=== PATIENT | male | born 1970 | race Two or more races ===

== ENCOUNTER 2018-05-19 09:49 | Emergency (ER) | payer MEDICAID, OTHER ==
[~2018-05-19] VITALS: Ht 172.7 cm; Wt 77.1 kg
[2018-05-19 09:49] VITALS: BP 124/85
[~2018-05-19 09:49] MED LIST: AUGMENTIN 875-1 EAC1 ORAL; ERYTHROMYCIN3.5 GM RIGHT EYE; IBUPROFEN600 MG ORAL; NKM; NORCO 5-325 TA1 EACH ORAL; VALACYCLOVIR1000 MG ORAL
[2018-05-19] MEDS ORDERED: Ketorolac 30mg Inj IV ONE (10:00)
[2018-05-19 10:28] LABS: BASOPHILS % (AUTO) 1.3 % (0.0-2.0); HEMATOCRIT 39.2 % (42.0-52.0); HEMOGLOBIN 13.4 G/DL (14.2-18.0); MEAN CORPUSCULAR VOLUME 94 FL (80-99); MONOCYTES % (AUTO) 4.4 % (1.0-10.0); NEUTROPHILS % (AUTO) 77.3 % (45.0-75.0); PLATELET COUNT 492 K/UL (150-450); RED BLOOD COUNT 4.18 M/UL (4.70-6.10); WHITE BLOOD COUNT 6.7 K/UL (4.8-10.8)
[2018-05-19 10:36] LABS: ANION GAP 14 mmol/L (5-15); BLOOD UREA NITROGEN 10 mg/dL (7-18); CALCIUM 8.3 MG/DL (8.5-10.1); CARBON DIOXIDE 22 MMOL/L (21-32); CHLORIDE 107 MMOL/L (98-107); POTASSIUM 3.7 MMOL/L (3.5-5.1); SODIUM 143 MMOL/L (136-145)
[2018-05-19 10:42] LABS: ALANINE AMINOTRANSFERASE 45 U/L (12-78); ALBUMIN 3.1 G/DL (3.4-5.0); ALBUMIN/GLOBULIN RATIO 0.6 (1.0-2.7); ALKALINE PHOSPHATASE 93 U/L (46-116); ASPARTATE AMINO TRANSFERASE 51 U/L (15-37); BILIRUBIN,TOTAL 0.4 MG/DL (0.2-1.0)
--- NOTE | 2018-05-19 14:27 | Emergency Room Report ---
History of Present Illness General Chief Complaint: Alcohol Intoxication Source: Patient, EMS Present Illness HPI Patient presents with reports of increased alcohol intake He reports that he has been depressed There are family issues and made him drink heavier than usual Patient had increased nausea mild headache Denies any chest pain Denies any vomiting or diarrhea Denies any neck pain denies any fevers Allergies: Coded Allergies: No Known Allergies (Unverified , 01/07/15) Patient History Past Medical History: see triage record Pertinent Family History: none Reviewed Nursing Documentation: PMH: Agreed; PSxH: Agreed Nursing Documentation-PMH Hx Hypertension: Yes Hx Diabetes: No Review of Systems All Other Systems: negative except mentioned in HPI Physical Exam Vital Signs Date Time Temp Pulse Resp B/P (MAP) Pulse Ox O2 Delivery O2 Flow Rate FiO2 05/19/18 09:42 97.9 100 18 118/83 98 05/19/18 09:49 Room Air Sp02 EP Interpretation: reviewed, normal General Appearance: no apparent distress Head: normocephalic, atraumatic Eyes: bilateral eye PERRL, bilateral eye EOMI ENT: hearing grossly normal, normal pharynx, TMs + canals normal, uvula midline Neck: full range of motion, supple, no meningismus, no bony tend Respiratory: lungs clear, normal breath sounds, no rhonchi, no respiratory distress, no retraction, no accessory muscle use Cardiovascular #1: normal peripheral pulses, regular rate, rhythm, no edema, no gallop, no JVD, no murmur Gastrointestinal: normal bowel sounds, non tender, soft, no mass, no organomegaly, non-distended, no guarding, no hernia, no pulsatile mass, no rebound Genitourinary: no CVA tenderness Musculoskeletal: normal inspection Neurologic: oriented x3, responsive, cardiac sonographer III-XII nml as tested, motor strength/ tone normal, sensory intact Psychiatric: other - Tearful Skin: normal color, no rash, warm/dry, palpation normal Lymphatic: normal inspection, no adenopathy Medical Decision Making Diagnostic Impression: Primary Impression: Acute alcoholic intoxication Additional Impression: depression ER Course Given the patient's history and presentation extensive blood work was initiated Patient's alcohol level is significantly elevated Given his complaints of depression and presentation psychiatric services were also requested Patient was seen and evaluated please refer to Dr. Stokes's note for full consult patient reports She however did have suggestions for the patient and did write a prescription Otherwise did not feel patient met any further requirement for acute intervention Family is being contacted and patient requires disposition with safety to family Secondary to alcohol intake otherwise medically cleared Labs Test 05/19/18 10:00 White Blood Count 6.7 K/UL (4.8-10.8) Red Blood Count 4.18 M/UL (4.70-6.10) Hemoglobin 13.4 G/DL (14.2-18.0) Hematocrit 39.2 % (42.0-52.0) Mean Corpuscular Volume 94 FL (80-99) Mean Corpuscular Hemoglobin 32.2 PG (27.0-31.0) Mean Corpuscular Hemoglobin Concent 34.3 G/DL (32.0-36.0) Red Cell Distribution Width 14.0 % (11.6-14.8) Platelet Count 492 K/UL (150-450) Mean Platelet Volume 5.8 FL (6.5-10.1) Neutrophils (%) (Auto) 77.3 % (45.0-75.0) Lymphocytes (%) (Auto) 16.0 % (20.0-45.0) Monocytes (%) (Auto) 4.4 % (1.0-10.0) Eosinophils (%) (Auto) 1.0 % (0.0-3.0) Basophils (%) (Auto) 1.3 % (0.0-2.0) Sodium Level 143 MMOL/L (136-145) Potassium Level 3.7 MMOL/L (3.5-5.1) Chloride Level 107 MMOL/L (98-107) Carbon Dioxide Level 22 MMOL/L (21-32) Anion Gap 14 mmol/L (5-15) Blood Urea Nitrogen 10 mg/dL (7-18) Creatinine 1.0 MG/DL (0.55-1.30) Estimat Glomerular Filtration Rate > 60 mL/min (>60) Glucose Level 103 MG/DL (74-106) Calcium Level 8.3 MG/DL (8.5-10.1) Total Bilirubin 0.4 MG/DL (0.2-1.0) Aspartate Amino Transf (AST/SGOT) 51 U/L (15-37) Alanine Aminotransferase (ALT/SGPT) 45 U/L (12-78) Alkaline Phosphatase 93 U/L (46-116) Total Protein 8.0 G/DL (6.4-8.2) Albumin 3.1 G/DL (3.4-5.0) Globulin 4.9 g/dL Albumin/Globulin Ratio 0.6 (1.0-2.7) Salicylates Level 1.3 ug/mL (2.8-20) Urine Opiates Screen Negative (NEGATIVE) Acetaminophen Level < 2 MCG/ML (10-30) Urine Barbiturates Screen Negative (NEGATIVE) Phencyclidine (PCP) Screen Negative (NEGATIVE) Urine Amphetamines Screen Negative (NEGATIVE) Urine Benzodiazepines Screen Negative (NEGATIVE) Urine Cocaine Screen Negative (NEGATIVE) Urine Marijuana (THC) Screen Negative (NEGATIVE) Serum Alcohol 370 mg/dL Last Vital Signs Date Time Temp Pulse Resp B/P (MAP) Pulse Ox O2 Delivery O2 Flow Rate FiO2 05/19/18 10:42 97.9 05/19/18 09:49 109 18 124/85 98 05/19/18 09:49 Room Air Status: improved Disposition: HOME, SELF-CARE Condition: Improved Referrals: [facility],REFERRING (PCP) Patient Instructions: Alcohol Abuse and Nutrition Additional Instructions: You were seen by psychiatric specialty today. A prescription was written after this visit please follow closely with your primary physician as well Matt Turner DO May 19, 2018 14:27
[2018-05-19 16:14] VITALS: BP 118/78
== END 2018-05-19 16:10 | disposition home or self-care (01) ==
LOC: EDBD 09:49 → EMR 10:10
DX: F10.129 Alcohol abuse with intoxication, unspecified (principal); I10 Essential (primary) hypertension; F32.9 Major depressive disorder, single episode, unspecified
CPT/HCPCS: 36415; 80053; 80307; 80329; 85025; 96361; 96374; 96375; 99284; J1885; J2405

== ENCOUNTER 2019-01-29 20:47 | Inpatient (IN) | payer OTHER ==
[~2019-01-29] VITALS: Ht 167.6 cm; Wt 66.2 kg
[~2019-01-29 20:47] MED LIST changes: +AMOXICILLIN500 MG ORAL; +RANITIDINE HCL150 MG ORAL; +ZOFRAN ODT4 MG ORAL
[2019-01-29] MEDS ORDERED: LISINOPRIL5 MG ORAL (20:58)
[2019-01-29] MEDS ORDERED: CYCLOBENZAPRINE10 MG ORAL (20:58)
[2019-01-29] MEDS ORDERED: MAG-OXIDE400 M1 PO (20:58)
[2019-01-29] MEDS ORDERED: FUROSEMIDE40 MG ORAL (20:58)
[2019-01-29] MEDS ORDERED: COREG3.125 MG ORAL (20:58)
--- NOTE | 2019-01-29 21:15 | NUR ---
ED Nurse Note: Recieved pt on jaspreet from home, awake, alert and oriented x 4, pt here with severe sob, pt has labored breathing and accessory muscle use, pt is only omani speaking, using translation faith pt has on his phone for assistance, pt also c/o abdominal paina t 8, no emesis and mild nausea, denies cp, pt immediately gowned and placed on cardiac monitoring, iv line and labs done also, will resume care as ordered and continue to closely monitor, respiratory therapist notified immediately.
--- NOTE | 2019-01-29 21:16 | Emergency Room Report ---
History of Present Illness General Chief Complaint: Dyspnea/Respdistress Source: Patient Present Illness HPI Patient presents with complaints of shortness of breath reports that Onset was several hours prior to arrival He feels more short of breath with any exertion denies any vomiting or diarrhea denies any fevers or chills on review of medical records patient has been here previously with Findings of possible CHF Patient himself is somewhat of a poor historian Did not provide any previous history of his presentations Denies any vomiting or diarrhea denies any fevers or chills denies any recent travel Allergies: Coded Allergies: NO KNOWN ALLERGIES (Unverified Allergy, Unknown, 07/21/18) Patient History Past Medical History: see triage record Reviewed Nursing Documentation: PMH: Agreed; PSxH: Agreed Nursing Documentation-PMH Past Medical History: No History, Except For Hx Hypertension: Yes Hx Diabetes: No Review of Systems All Other Systems: negative except mentioned in HPI Physical Exam Vital Signs Date Time Temp Pulse Resp B/P (MAP) Pulse Ox O2 Delivery O2 Flow Rate FiO2 01/29/19 20:54 97.3 98 47 120/98 (105) 92 Room Air Sp02 EP Interpretation: reviewed, normal General Appearance: mild distress - Tachypneic and appears short of breath Head: normocephalic, atraumatic Eyes: bilateral eye PERRL, bilateral eye EOMI ENT: hearing grossly normal, normal pharynx, TMs + canals normal, uvula midline Neck: full range of motion, supple, no meningismus, no bony tend Respiratory: no rhonchi, no respiratory distress, no retraction, no accessory muscle use, crackles - Bilaterally Cardiovascular #1: normal peripheral pulses, regular rate, rhythm, no edema, no gallop, no JVD, no murmur Gastrointestinal: normal bowel sounds, non tender, soft, no mass, no organomegaly, non-distended, no guarding, no hernia, no pulsatile mass, no rebound Genitourinary: no CVA tenderness Musculoskeletal: normal inspection Neurologic: oriented x3, responsive, engine repairer production III-XII nml as tested, motor strength/ tone normal, sensory intact Psychiatric: mood/affect normal Skin: no rash Lymphatic: normal inspection, no adenopathy Procedures Critical Care Time Critical Care Time 50 minutes for multiple re-evaluations initial critical presentation with respiratory distress not including any procedural time Medical Decision Making Diagnostic Impression: Primary Impression: Dyspnea Additional Impression: CHF (congestive heart failure) ER Course Patient is a fairly complex patient with multiple differential to consideration including but not limited to cardiac cardiopulmonary and vascular emergencies Patient's x-ray shows right-sided increased markings and also cardiomegaly with congestion blood work reveals findings with increased BNP Patient has further diuretics provided was initially placed on BiPAP with significant improvement and later on Was asking to remove this And admitted for further care Labs Test 01/29/19 21:15 01/29/19 22:00 White Blood Count 7.2 K/UL (4.8-10.8) Red Blood Count 3.96 M/UL (4.70-6.10) Hemoglobin 13.0 G/DL (14.2-18.0) Hematocrit 37.3 % (42.0-52.0) Mean Corpuscular Volume 94 FL (80-99) Mean Corpuscular Hemoglobin 32.9 PG (27.0-31.0) Mean Corpuscular Hemoglobin Concent 34.9 G/DL (32.0-36.0) Red Cell Distribution Width 14.2 % (11.6-14.8) Platelet Count 201 K/UL (150-450) Mean Platelet Volume 6.5 FL (6.5-10.1) Neutrophils (%) (Auto) 79.9 % (45.0-75.0) Lymphocytes (%) (Auto) 14.0 % (20.0-45.0) Monocytes (%) (Auto) 4.3 % (1.0-10.0) Eosinophils (%) (Auto) 1.0 % (0.0-3.0) Basophils (%) (Auto) 0.9 % (0.0-2.0) Prothrombin Time 11.5 SEC (9.30-11.50) Prothromb Time International Ratio 1.1 (0.9-1.1) Activated Partial Thromboplast Time 29 SEC (23-33) Sodium Level 139 MMOL/L (136-145) Potassium Level 4.1 MMOL/L (3.5-5.1) Chloride Level 105 MMOL/L (98-107) Carbon Dioxide Level 24 MMOL/L (21-32) Anion Gap 10 mmol/L (5-15) Blood Urea Nitrogen 17 mg/dL (7-18) Creatinine 1.0 MG/DL (0.55-1.30) Estimat Glomerular Filtration Rate > 60 mL/min (>60) Glucose Level 122 MG/DL (74-106) Calcium Level 8.2 MG/DL (8.5-10.1) Total Bilirubin 1.2 MG/DL (0.2-1.0) Direct Bilirubin 0.2 MG/DL (0.0-0.3) Aspartate Amino Transf (AST/SGOT) 89 U/L (15-37) Alanine Aminotransferase (ALT/SGPT) 70 U/L (12-78) Alkaline Phosphatase 99 U/L (46-116) Total Creatine Kinase 381 U/L (26-308) Creatine Kinase MB 5.4 NG/ML (0.0-3.6) Creatine Kinase MB Relative Index 1.4 Troponin I 0.012 ng/mL (0.000-0.056) Pro-B-Type Natriuretic Peptide 7165 pg/mL (0-125) Total Protein 7.3 G/DL (6.4-8.2) Albumin 3.3 G/DL (3.4-5.0) Globulin 4.0 g/dL Albumin/Globulin Ratio 0.8 (1.0-2.7) Lipase 205 U/L (73-393) Urine Color Pale yellow Urine Appearance Clear Urine pH 5 (4.5-8.0) Urine Specific [place] 1.010 (1.005-1.035) Urine Protein Negative (NEGATIVE) Urine Glucose (UA) Negative (NEGATIVE) Urine Ketones Negative (NEGATIVE) Urine Blood Negative (NEGATIVE) Urine Nitrite Negative (NEGATIVE) Urine Bilirubin Negative (NEGATIVE) Urine Urobilinogen Normal MG/DL (0.0-1.0) Urine Leukocyte Esterase Negative (NEGATIVE) EKG Diagnostic Results Rate: normal Rhythm: NSR ST Segments: other - Prolonged QRS nonspecific ST changes Rhythm Strip Diag. Results EP Interpretation: yes Rate: 88 Rhythm: NSR, no PVC's, no ectopy Chest X-Ray Diagnostic Results Chest X-Ray Diagnostic Results : Chest X-Ray Ordered: Yes # of Views/Limited/Complete: 1 View Indication: Chest Pain EP Interpretation: Yes Interpretation: no pneumothorax, other - Sided infiltrate, cardiomegaly CHF, Impression: Other - Right-sided infiltrate, CHF Electronically Signed by: Matt Turner DO Last Vital Signs Date Time Temp Pulse Resp B/P (MAP) Pulse Ox O2 Delivery O2 Flow Rate FiO2 01/29/19 20:54 97.3 98 47 120/98 (105) 92 Room Air Status: improved Disposition: HOME, SELF-CARE Condition: Improved Additional Instructions: Patient is provided with the discharge instructions notified to follow up with primary doctor in the next 2-3 days otherwise return to the er with any worsening symptoms. Please note that this report is being documented using [employer] technology. This can lead to erroneous entry secondary to incorrect interpretation by the dictating instrument. Matt Turner DO Jan 29, 2019 21:16
[2019-01-29 22:00] VITALS: BP 125/70
--- NOTE | 2019-01-29 22:00 | NUR ---
ED Nurse Note: Pt placed on BIPAP respiratory support, tolerating well, denies cp, remains with md sim aware, will continue to closely monitor, pt being prepared for admission.
[2019-01-29 22:02] LABS: BASOPHILS % (AUTO) 0.9 % (0.0-2.0); HEMATOCRIT 37.3 % (42.0-52.0); MEAN CORPUSCULAR VOLUME 94 FL (80-99); MONOCYTES % (AUTO) 4.3 % (1.0-10.0); NEUTROPHILS % (AUTO) 79.9 % (45.0-75.0); PLATELET COUNT 201 K/UL (150-450); RED BLOOD COUNT 3.96 M/UL (4.70-6.10); RED CELL DISTRIBUTION WIDTH 14.2 % (11.6-14.8); WHITE BLOOD COUNT 7.2 K/UL (4.8-10.8)
[2019-01-29 22:07] LABS: ANION GAP 10 mmol/L (5-15); BLOOD UREA NITROGEN 17 mg/dL (7-18); CALCIUM 8.2 MG/DL (8.5-10.1); CARBON DIOXIDE 24 MMOL/L (21-32); CHLORIDE 105 MMOL/L (98-107); POTASSIUM 4.1 MMOL/L (3.5-5.1); SODIUM 139 MMOL/L (136-145)
[2019-01-29 22:08] LABS: INR 1.1 (0.9-1.1)
[2019-01-29 22:30] VITALS: BP 120/81
[2019-01-29 22:31] LABS: ALANINE AMINOTRANSFERASE 70 U/L (12-78); ALBUMIN 3.3 G/DL (3.4-5.0); ALBUMIN/GLOBULIN RATIO 0.8 (1.0-2.7); ALKALINE PHOSPHATASE 99 U/L (46-116); ASPARTATE AMINO TRANSFERASE 89 U/L (15-37); BILIRUBIN,TOTAL 1.2 MG/DL (0.2-1.0); CKMB 5.4 NG/ML (0.0-3.6); CREATINE KINASE 381 U/L (26-308)
[2019-01-29 22:32] LABS: BILIRUBIN,DIRECT 0.2 MG/DL (0.0-0.3)
[2019-01-29 22:44] LABS: APPEARANCE,URINE CLEAR; BILIRUBIN, URINE NEGATIVE (NEGATIVE); COLOR,URINE PALE YELLOW; GLUCOSE, URINE (UA) NEGATIVE (NEGATIVE); KETONES,URINE NEGATIVE (NEGATIVE); LEUKOCYTE ESTERASE ,URINE NEGATIVE (NEGATIVE); NITRITE,URINE NEGATIVE (NEGATIVE); PH,URINE 5 (4.5-8.0); PROTEIN,URINE NEGATIVE (NEGATIVE); UROBILINOGEN,URINE NORMAL MG/DL (0.0-1.0)
[2019-01-29 23:15] VITALS: BP 118/87
[2019-01-29] MEDS ORDERED: Nitroglycerin Subl 0.4mg tab SL PRN (23:15)
[2019-01-29] MEDS ORDERED: Albuterol/Ipratropium 3ml neb HHN PRN (23:15)
--- NOTE | 2019-01-29 23:35 | NUR ---
ED Nurse Note: Pt continues to take off BIPAP mask, MD aware, pt given trial of off periiod and tolerated well, pt has been removed from BIPAP per MD, o2 sat=98-99% on RA and pt breathing effort is less, continues to deny chest pain, remains with abdominal pain, md informed again, pt also given water and tolerating well, iv site intact and patent, will continue to clsoely monitor.
[2019-01-30] MEDS ORDERED: Enoxaparin 40mg Inj SUBQ SCH ×2 (00:15→09:00)
[2019-01-30 00:30] VITALS: BP 116/76
--- NOTE | 2019-01-30 01:00 | NUR ---
ED Nurse Note: Pt continues to tolerate room air, b0xrw=45%, pt being prepared for admission,b elonging list completed and med rec, will continue to closely montior and prepare for admission.
--- NOTE | 2019-01-30 01:25 | NUR ---
ED Nurse Note: pt being amditted to floor, report called to GRIS MAY on unit, given all pertinent info and lab values, pt remains awake and alert, iv site intact and patent, completed iv antibiotics, no s/s of adverse reaction noted, pt being taken to floor unit via gurney with GRIS Roth and clayton-pierce piña noted during pt transport to unit.
[2019-01-30 01:30] VITALS: BP 119/83
[2019-01-30 02:00] VITALS: BP 115/84
--- NOTE | 2019-01-30 02:00 | NUR ---
NURSE NOTES: Received pt from ED via gurney. Pt transferred to - without any incident. Received report from GRIS Kruger. Pt is A/O x4. cardiac monitor is in placed, IV site intact, asymptomatic and patent. Belongings list checked and accounted. Bed is in the lowest position and locked. Call light within reach. No signs/symptoms of acute distress noted at this time. Received admission orders from Dr. Connell. Will note and carry out.
[2019-01-30 04:00] VITALS: BP 122/80
[2019-01-30 07:41] LABS: BASOPHILS % (AUTO) 0.8 % (0.0-2.0); HEMATOCRIT 41.8 % (42.0-52.0); LYMPHOCYTES % (AUTO) 10.8 % (20.0-45.0); MEAN CORPUSCULAR VOLUME 97 FL (80-99); MONOCYTES % (AUTO) 7.3 % (1.0-10.0); NEUTROPHILS % (AUTO) 80.1 % (45.0-75.0); PLATELET COUNT 209 K/UL (150-450); RED BLOOD COUNT 4.31 M/UL (4.70-6.10); WHITE BLOOD COUNT 10.8 K/UL (4.8-10.8)
--- NOTE | 2019-01-30 07:45 | NUR ---
NURSE NOTES: Nurse report given by GRIS Perea. Patient's awake, denies pain, no s/s of acute distress or SOB. Pt's on NC 2L, IV is SL, flushed well, patent and asymptomatic. Bed at lowest position, call light within reach, break engaged, belonging bag is next to bed side.
--- NOTE | 2019-01-30 07:52 | NUR ---
HAND-OFF: Report given to GRIS Guzman.
[2019-01-30 07:59] LABS: ANION GAP 10 mmol/L (5-15); BLOOD UREA NITROGEN 16 mg/dL (7-18); CALCIUM 8.5 MG/DL (8.5-10.1); CARBON DIOXIDE 25 MMOL/L (21-32); CHLORIDE 102 MMOL/L (98-107); POTASSIUM 3.6 MMOL/L (3.5-5.1); SODIUM 137 MMOL/L (136-145)
[2019-01-30 08:00] VITALS: BP 108/79
[2019-01-30] MEDS ORDERED: Levofloxacin 500mg tab ORAL SCH (09:00)
[2019-01-30] MEDS ORDERED: Aspirin Baby 81mg ORAL SCH (09:00)
--- NOTE | 2019-01-30 09:27 | NUR ---
*-* NO INSURANCE INFORMATION IN THE BAR UNABLE TO SEND CLINICALS OR REVIEWS *-*
--- NOTE | 2019-01-30 11:29 | NUR ---
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
[2019-01-30 12:00] VITALS: BP 109/64
--- NOTE | 2019-01-30 12:25 | Diagnostic Imaging Report ---
Indication: Reason For Exam: SOB Technique: Single AP view of the chest. Comparison: Chest radiograph dated 07/21/2018 Findings: The heart is enlarged when accounting for projection and technique. There is pulmonary vascular congestion. There is right lower lobe consolidation. No pneumothorax. No pleural fluid. No acute osseous abnormality. IMPRESSION: Right lower lobe consolidation suspicious for pneumonia.
--- NOTE | 2019-01-30 12:45 | History and Physical Report ---
DATE OF ADMISSION: 01/29/2019 REASON FOR ADMISSION: Shortness of breath. HISTORY OF PRESENT ILLNESS: The patient is a 48-year-old gentleman, presented to the emergency room complaining of shortness of breath over the last two or three days. The patient stated it came on suddenly. Denies any current chest pain. No nausea, vomiting, or diarrhea. At home, the patient was taking medications for hypertension. No previous diagnosis of myocardial infarction. PAST MEDICAL HISTORY: 1. Hypertension. 2. Muscle spasms. ALLERGIES: No known drug allergies. FAMILY HISTORY: Positive for hypertension. PAST SURGICAL HISTORY: Noncontributory. REVIEW OF SYSTEMS: NEUROLOGIC: The patient denies headache, change in vision, syncope, or presyncopal episodes. CARDIOVASCULAR: No current chest pain, palpitations, or angina. PULMONARY: The patient was short of breath with nonproductive cough. GASTROINTESTINAL/GENITOURINARY: No changes in urinary or bowel habits. No nausea, vomiting, or diarrhea. ENDOCRINOLOGY: No night sweats, fevers, or chills. MUSCULOSKELETAL: The patient is feeling weak, tired, and fatigued. PHYSICAL EXAMINATION: VITAL SIGNS: Blood pressure 108/79, respiratory rate 20, pulse 88, temperature 98.1, and 95% oxygen saturation on room air. GENERAL: The patient is awake, alert, not in distress. HEENT: Extraocular muscles intact. No lymphadenopathy noted. CARDIOVASCULAR: S1, S2. No rubs or gallops. PULMONARY: Clear to auscultation bilaterally. No rales, rhonchi, or wheezes. ABDOMEN: Nondistended and nontender. EXTREMITIES: No edema. LABORATORY DATA: Laboratories dated January 30, 2019, sodium 137, potassium 3.6, creatinine 1. White cell count 10.8, hemoglobin 14, and platelet count 209. ASSESSMENT AND PLAN: 1. Shortness of breath, most likely secondary to CHF. We will continue diuresing patient. Troponin currently negative, repeat pending, and Cardiology consultation per Dr. Lou. 2. Hypertension. Continue lisinopril and Coreg. 3. DVT prophylaxis with Lovenox. 4. GI prophylaxis with famotidine. 5. Possible pneumonia. We will continue daily Levaquin. Gigi Connell MD DR: JOIE JOB#: [id number] CC:
--- NOTE | 2019-01-30 12:56 | NUR ---
NURSE NOTES: Patient wants to sign AMA because he stated: " I need to go home, I don't want to lose my job." I reeducated him about the risk of leaving the hospital while he's still in treatment and he agreed that he understand. Contacted Dr. Connell about his wish to leave the hospital. Dr. Connell aware and agree to let patient to sign AMA and follow up with his PCP.
--- NOTE | 2019-01-30 13:30 | NUR ---
NURSE NOTES: Patient signed AMA and understood the risk of leaving without treatment. Belonging list went over and signed by patient at bed side. Patient's stable and ambulates.His daughter picking him up. quality assurance monitor body, IV and ID band are removed. Denies pain. Denies SOB. No s/s of distress or SOB. Patient left the floor at 1330. Charge nurse and quality assurance monitor body aware.
--- NOTE | 2019-01-31 09:22 | Discharge Summary ---
Discharge Summary Discharge Summary _ DATE OF ADMISSION: 01/29/2019 DATE OF DISCHARGE: 01/30/2019 DISCHARGED BY: Dr. Connell REASON FOR ADMISSION: 48 years old male with past medical history of hypertension , presented to emergency department complaining of shortness of breath over the last 2 to 3 days. He denied chest pain. No nausea , vomiting or diarrhea. No cardiac history. Upon evaluation vital signs were stable. Pulse oximetry was 92% on room air. Laboratory work-up revealed no leukocytosis , stable hemoglobin and hematocrit. Stable electrolytes and renal parameters. Glucose 122. Troponin - 0.012. Pro BNP 7165. Urinalysis revealed no evidence of UTI. EKG revealed sinus rhythm with prolonged QRS and nonspecific ST changes. Chest x-ray demonstrated right lower lobe consolidation, suspicious for pneumonia. In emergency department patient was placed on the BiPAP with significant improvement in respiration. Patient received empiric antibiotic, IV diuretic and Lovenox and admitted for further management . HOSPITAL COURSE: Patient admitted to telemetry floor. Second troponin was negative. EKG revealed no acute ischemic changes. Patient started on IV Lasix with close monitoring of volumes and cardiorenal parameters. Cardiology consult was requested. Blood pressure was managed with lisinopril and Coreg. DVT and GI prophylaxis provided. Patient started on empiric antibiotic for possible pneumonia. Supplemental oxygen titrated to keep pulse oximetry above 92%. Bronchodilator therapy via handheld nebulizer provided as needed. Patient decided to leave AGAINST MEDICAL ADVICE. The risks and consequences of signing AGAINST MEDICAL ADVICE were discussed with patient in detail. Patient verbalized understanding, nevertheless signed AMA form and left. FINAL DIAGNOSES: Shortness of breath most likely secondary to CHF Hypertension Possible pneumonia I have been assigned to dictate discharge summary for this account. I was not involved in the patient's management. Emiliana Toribio NP Jan 31, 2019 09:22
== END 2019-01-30 13:30 | disposition home or self-care (01) | DRG 194 ==
LOC: EMR 21:05 → 2E 22:04 → EDBEDREQ 01-30 01:22
DX: I11.0 Hypertensive heart disease with heart failure (principal); I50.9 Heart failure, unspecified; J18.9 Pneumonia, unspecified organism
CPT/HCPCS: 36415; 71045; 80048; 80053; 80307; 81003; 82248; 82550; 82553; 83690; 83880; 84484; 85025; 85610; 85730; 87040; 93005; 94664; 96365; 96375; 99291

== ENCOUNTER 2019-02-20 11:48 | Emergency (ER) | payer OTHER ==
[~2019-02-20] VITALS: Ht 170.2 cm; Wt 63.5 kg
[~2019-02-20 11:48] MED LIST changes: +COREG3.125 MG ORAL; +CYCLOBENZAPRINE10 MG ORAL; +FUROSEMIDE40 MG ORAL; +LISINOPRIL5 MG ORAL; +MAG-OXIDE400 M1 PO
[2019-02-20 12:00] VITALS: BP 113/70
--- NOTE | 2019-02-20 12:00 | NUR ---
ED Nurse Note: PT WALKED IN TO ER TODAY FROM HOME. AOX4. PT C/O GENERALIZED CHEST PAIN, 9/10 X 2 DAYS AGO. PT ALSO C/O SOB X 2 DAYS AGO. AT BEDSIDE, BREATHING SLIGHTLY LABORED, O2 SAT 85% ON RA. PT PLACED ON 4L VIA NASAL CANNULA. O2 SAT NOW 98% ON 4L. PT ABLE TO SPEAK IN FULL SENTENCES. PT TACHYCARDIC - HR: 101, DR OKEEFE AWARE.
--- NOTE | 2019-02-20 12:16 | Emergency Room Report ---
History of Present Illness General Chief Complaint: Dyspnea/Respdistress Source: Patient Present Illness HPI Patient presents with complaints of shortness of breath patient reports that he has not been taking any of his medications over the past 10 days Denies any chest pain he feels more short of breath with laying down and ambulation denies any pleurisy denies any recent travel patient has had recent hospitalization for CHF Denies any vomiting or diarrhea denies any neck pain or photophobia Allergies: Coded Allergies: NO KNOWN ALLERGIES (Unverified Allergy, Unknown, 07/21/18) Patient History Past Medical History: see triage record Reviewed Nursing Documentation: PMH: Agreed; PSxH: Agreed Nursing Documentation-PMH Past Medical History: No History, Except For Hx Cardiac Problems: Yes Hx Hypertension: Yes Hx Diabetes: No Hx Cancer: No Hx Gastrointestinal Problems: No Hx Neurological Problems: No Review of Systems All Other Systems: negative except mentioned in HPI Physical Exam Vital Signs Date Time Temp Pulse Resp B/P (MAP) Pulse Ox O2 Delivery O2 Flow Rate FiO2 02/20/19 11:49 97.7 106 18 122/55 (77) 96 Room Air 02/20/19 12:00 4.0 Sp02 EP Interpretation: reviewed, normal General Appearance: well appearing, no apparent distress Head: normocephalic, atraumatic Eyes: bilateral eye PERRL, bilateral eye EOMI ENT: hearing grossly normal, normal pharynx, TMs + canals normal, uvula midline Neck: full range of motion, supple, no meningismus, no bony tend Respiratory: no rhonchi, no respiratory distress, no retraction, no accessory muscle use, crackles - bilaterally Cardiovascular #1: normal peripheral pulses, regular rate, rhythm, no edema, no gallop, no JVD, no murmur Gastrointestinal: normal bowel sounds, non tender, soft, no mass, no organomegaly, non-distended, no guarding, no hernia, no pulsatile mass, no rebound Genitourinary: no CVA tenderness Musculoskeletal: normal inspection Neurologic: oriented x3, responsive, 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 vault 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 nml as tested, motor strength/ tone normal, sensory intact Psychiatric: mood/affect normal Skin: no rash Lymphatic: normal inspection, no adenopathy Procedures Critical Care Time Critical Care Time 50 minutes for multiple re-evaluations respiratory distress concerning for respiratory failure not including any procedural time Medical Decision Making Diagnostic Impression: Primary Impression: Dyspnea Additional Impressions: Respiratory distress CHF (congestive heart failure) ER Course Patient is a fairly complex patient with multiple differential to consideration including but not limited to cardiac cardiopulmonary and vascular emergencies Patient initially trialed on nasal cannula however Requires BiPAP which was placed and did do better with this X-ray shows congestive findings Patient provided with further diuretics and requires further inpatient care Labs Test 02/20/19 12:00 White Blood Count 5.9 K/UL (4.8-10.8) Red Blood Count 4.25 M/UL (4.70-6.10) Hemoglobin 13.7 G/DL (14.2-18.0) Hematocrit 41.0 % (42.0-52.0) Mean Corpuscular Volume 97 FL (80-99) Mean Corpuscular Hemoglobin 32.3 PG (27.0-31.0) Mean Corpuscular Hemoglobin Concent 33.5 G/DL (32.0-36.0) Red Cell Distribution Width 13.8 % (11.6-14.8) Platelet Count 278 K/UL (150-450) Mean Platelet Volume 6.2 FL (6.5-10.1) Neutrophils (%) (Auto) 68.4 % (45.0-75.0) Lymphocytes (%) (Auto) 24.0 % (20.0-45.0) Monocytes (%) (Auto) 3.8 % (1.0-10.0) Eosinophils (%) (Auto) 2.1 % (0.0-3.0) Basophils (%) (Auto) 1.7 % (0.0-2.0) Sodium Level 145 MMOL/L (136-145) Potassium Level 3.9 MMOL/L (3.5-5.1) Chloride Level 111 MMOL/L (98-107) Carbon Dioxide Level 18 MMOL/L (21-32) Anion Gap 16 mmol/L (5-15) Blood Urea Nitrogen 6 mg/dL (7-18) Creatinine 0.9 MG/DL (0.55-1.30) Estimat Glomerular Filtration Rate > 60 mL/min (>60) Glucose Level 110 MG/DL (74-106) Calcium Level 8.4 MG/DL (8.5-10.1) Total Bilirubin 0.6 MG/DL (0.2-1.0) Aspartate Amino Transf (AST/SGOT) 38 U/L (15-37) Alanine Aminotransferase (ALT/SGPT) 31 U/L (12-78) Alkaline Phosphatase 82 U/L (46-116) Total Creatine Kinase 202 U/L (26-140) Creatine Kinase MB 3.2 NG/ML (0.0-3.6) Creatine Kinase MB Relative Index 1.5 Troponin I 0.000 ng/mL (0.000-0.056) Pro-B-Type Natriuretic Peptide 1906 pg/mL (0-125) Total Protein 7.8 G/DL (6.4-8.2) Albumin 3.4 G/DL (3.4-5.0) Globulin 4.4 g/dL Albumin/Globulin Ratio 0.8 (1.0-2.7) Urine Opiates Screen Negative (NEGATIVE) Urine Barbiturates Screen Negative (NEGATIVE) Phencyclidine (PCP) Screen Negative (NEGATIVE) Urine Amphetamines Screen Negative (NEGATIVE) Urine Benzodiazepines Screen Negative (NEGATIVE) Urine Cocaine Screen Negative (NEGATIVE) Urine Marijuana (THC) Screen Negative (NEGATIVE) EKG Diagnostic Results Rate: tachycardiac Rhythm: NSR ST Segments: other - Wide-complex interventricular block nonspecific ST changes Rhythm Strip Diag. Results EP Interpretation: yes Rate: 90 Rhythm: NSR, no PVC's, no ectopy Chest X-Ray Diagnostic Results Chest X-Ray Diagnostic Results : Chest X-Ray Ordered: Yes # of Views/Limited/Complete: 1 View Indication: Shortness of Breath EP Interpretation: Yes Interpretation: no pneumothorax, other - cardiomegaly, pulmonary congestion Impression: Other - Acute CHF Electronically Signed by: Matt Turner DO Last Vital Signs Date Time Temp Pulse Resp B/P (MAP) Pulse Ox O2 Delivery O2 Flow Rate FiO2 02/20/19 12:00 98.0 101 20 113/70 98 Nasal Cannula 4.0 Status: improved Disposition: XFER SHT-TRM HOSP Condition: Improved Matt Turner DO Feb 20, 2019 12:16
[2019-02-20 12:36] LABS: BASOPHILS % (AUTO) 1.7 % (0.0-2.0); EOSINOPHILS % (AUTO) 2.1 % (0.0-3.0); HEMOGLOBIN 13.7 G/DL (14.2-18.0); MEAN CORPUSCULAR VOLUME 97 FL (80-99); MONOCYTES % (AUTO) 3.8 % (1.0-10.0); NEUTROPHILS % (AUTO) 68.4 % (45.0-75.0); PLATELET COUNT 278 K/UL (150-450); RED BLOOD COUNT 4.25 M/UL (4.70-6.10); RED CELL DISTRIBUTION WIDTH 13.8 % (11.6-14.8); WHITE BLOOD COUNT 5.9 K/UL (4.8-10.8)
[2019-02-20 12:46] LABS: ANION GAP 16 mmol/L (5-15); BLOOD UREA NITROGEN 6 mg/dL (7-18); CARBON DIOXIDE 18 MMOL/L (21-32); CHLORIDE 111 MMOL/L (98-107); CREATININE 0.9 MG/DL (0.55-1.30); POTASSIUM 3.9 MMOL/L (3.5-5.1); SODIUM 145 MMOL/L (136-145)
[2019-02-20 13:03] LABS: CALCIUM 8.4 MG/DL (8.5-10.1)
[2019-02-20 13:05] LABS: ALANINE AMINOTRANSFERASE 31 U/L (12-78); ALBUMIN 3.4 G/DL (3.4-5.0); ALBUMIN/GLOBULIN RATIO 0.8 (1.0-2.7); ASPARTATE AMINO TRANSFERASE 38 U/L (15-37); BILIRUBIN,TOTAL 0.6 MG/DL (0.2-1.0); CKMB 3.2 NG/ML (0.0-3.6); CREATINE KINASE 202 U/L (26-140)
[2019-02-20 13:06] LABS: ALKALINE PHOSPHATASE 82 U/L (46-116)
--- NOTE | 2019-02-20 13:40 | NUR ---
ED Nurse Note: PT PLACED ON BIPAP PER DR OKEEFE ORDER. IPAP 12 EPAP 5 FiO2 35%
[2019-02-20 14:20] VITALS: BP 107/75
--- NOTE | 2019-02-20 15:26 | Diagnostic Imaging Report ---
Indication: Shortness of breath Technique: One view of the chest Comparison: 01/29/2019 Findings: There is a comparison radiograph of 01/30/2019. However, suspect that this may not be the same patient, as the body habitus and cardiac configuration appear different. Comparison exam of 01/29/2019 images is clearly the same patient. Again demonstrated is cardiomegaly. Bilateral interstitial and right mid and lower lung airspace parenchymal opacities are similar to the prior study. The pleural spaces are grossly clear. Impression: Cardiomegaly Bilateral interstitial airspace disease, likely on the basis of pulmonary edema. Pneumonia also a possibility
--- NOTE | 2019-02-20 15:55 | NUR ---
ED Nurse Note: [facility] CALLED FOR PT REPORT. REPORT GIVEN TO GRIS QUILES. 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
--- NOTE | 2019-02-20 16:05 | NUR ---
ED Nurse Note: PT STATES HE NEEDS TO CHECK ON HIS CAR AND REPARK. PT STATES HE WILL RETURN AFTER CHECKING ON HIS CAR. ID WRISTBAND AND IV REMOVED FROM PT DUE TO ELOPEMENT RISK.
--- NOTE | 2019-02-20 16:16 | NUR ---
ED Nurse Note: PT RETURNED FROM MOVING HIS CAR. RT CALLED AND PT PLACED ON BIPAP AGAIN. SETTINGS: IPAP 12 EPAP 5 FiO2 35%
[2019-02-20 16:59] VITALS: BP 115/75
--- NOTE | 2019-02-20 17:19 | NUR ---
ED Nurse Note: [facility] AT BEDSIDE FOR PT PICKUP. REPORT GIVEN TO EMS. 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
[2019-02-20 17:20] VITALS: BP 108/74
--- NOTE | 2019-02-22 15:25 | Cardiology Report ---
APPROVED REPORT EKG Measurement Heart [id number] Sinus tachycardia Possible Left atrial enlargement Left bundle branch block Abnormal ECG
== END 2019-02-20 17:20 | disposition short-term general hospital (02) ==
LOC: EMR 13:00
DX: R06.03 Acute respiratory distress (principal); I11.0 Hypertensive heart disease with heart failure; I50.9 Heart failure, unspecified; I45.4 Nonspecific intraventricular block
CPT/HCPCS: 36415; 71045; 80053; 80307; 82550; 82553; 83880; 84484; 85025; 93005; 94660; 94664; 96374; 99291; J1940; 99285

== ENCOUNTER 2019-06-30 17:09 | Emergency (ER) | payer OTHER ==
[~2019-06-30] VITALS: Ht 162.6 cm; Wt 77.1 kg
[2019-06-30 17:18] VITALS: BP 118/82
--- NOTE | 2019-06-30 17:19 | NUR ---
ED Nurse Note: Patient walked in to ER from home due to abdominal pain 5/10 and N/V x5 days. pt aao x4 and ambulatory. calm and cooperative. skin clean and intact. no cardiac or pulmonary distress noted at this time. 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
--- NOTE | 2019-06-30 17:22 | NUR ---
ED Nurse Note: ERMD at bedside.
--- NOTE | 2019-06-30 17:28 | NUR ---
ED Nurse Note: operations and maintenance technician at bedside for EKG and orthostatic vital signs.
[2019-06-30 17:35] VITALS: BP_SYST 109; BP_SYST 113; BP_SYST 116; BP_DIAS 75; BP_DIAS 78; BP_DIAS 80
--- NOTE | 2019-06-30 17:45 | Emergency Room Report ---
History of Present Illness General Chief Complaint: Vomiting Source: Patient Present Illness HPI Patient presents with 5 days of nausea vomiting abdominal pain and weakness. He says he cannot keep anything down at this time. He denies any coffee grounds or blood. He denies melena. The abdominal pain is generalized and he says is 5/10 at this time it is fairly constant. He tried taking [place] and Pepto-Bismol. That seemed to help a little bit but then he vomited those back up again also. The patient states he is too weak to work at this time. He feels dizzy when he stands up. Also he feels weak when he exerts himself. He denies chest pain or palpitations. The patient was recently discharged from [facility]. He was admitted for edema and alcohol abuse. He was hospitalized for 4 days. He was discharged a month ago. He said that he was not discharged on any medication. He was told that the edema was secondary to alcohol abuse. He claims he last drank alcohol 3 weeks ago and has been sober since that time. He used to drink shin. He denies seizures or tremulousness. Apparently they wanted to put in a pacemaker but he refused. He has attended Alcoholics Anonymous in the past. The patient's been seen here for alcohol intoxication in the past. He was admitted for acute coronary syndrome in July of last year. An echocardiogram revealed that he had an ejection fraction of 20 to 25%. Pulmonary hypertension mitral regurgitation and mild tricuspid regurgitation. In past treated with Carvedilol and Lisinopril. No fevers, chills, sore throat, palpitations, dysuria, shortness of breath, joint pain, rashes, depression, anxiety, visual changes. Occasional headache. He has taken Tylenol for this. Allergies: Coded Allergies: NO KNOWN ALLERGIES (Unverified Allergy, Unknown, 07/21/18) Patient History Past Medical History: see triage record, old chart reviewed, CHF Social History: Reports: alcohol use; Denies: smoking, drug use Social History Narrative Born in [facility]. 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 Has a daughter. Reviewed Nursing Documentation: PMH: Agreed; PSxH: Agreed Nursing Documentation-PMH Past Medical History: No History, Except For Hx Cardiac Problems: Yes Hx Hypertension: Yes Hx Diabetes: No Hx Cancer: No Hx Gastrointestinal Problems: No Hx Neurological Problems: No Review of Systems All Other Systems: negative except mentioned in HPI Physical Exam Vital Signs Date Time Temp Pulse Resp B/P (MAP) Pulse Ox O2 Delivery O2 Flow Rate FiO2 06/30/19 17:11 97.7 102 20 112/84 (93) 97 Room Air Sp02 EP Interpretation: reviewed, normal General Appearance: well appearing, GCS 15 Eyes: bilateral eye PERRL, bilateral eye EOMI, bilateral eye other ENT: moist mucus membranes Neck: full range of motion, supple Respiratory: lungs clear, normal breath sounds Cardiovascular #1: regular rate, rhythm, JVD, edema - Trace bilaterally Cardiovascular #2: 2+ radial (L) Gastrointestinal: soft, no guarding, no rebound, tenderness - Reported, hepatomegaly Genitourinary: no CVA tenderness Musculoskeletal: back normal, digits/nails normal, no calf tenderness, pelvis stable, gait/station normal Neurologic: alert, motor strength/tone normal, grossly normal Psychiatric: mood/affect normal Skin: no rash, warm/dry Medical Decision Making Diagnostic Impression: Primary Impression: Alcoholic gastritis Qualified Codes: K29.20 - Alcoholic gastritis without bleeding Additional Impressions: CHF (congestive heart failure) Qualified Codes: I50.812 - Chronic right heart failure Hypomagnesemia Alcohol abuse ER Course Patient presents with weakness, nausea and vomiting for 5 days. Differential includes acute myocardial infarction, alcoholic gastritis, hepatitis, cirrhosis , gastroenteritis, pancreatitis amongst others. Patient is not orthostatic at this time. Evaluation with EKG, chest x-ray, abdominal film and labs. Patient treated with Zofran and Pepcid. Tylenol will be given also. Patient is complex that he has a history of congestive heart failure and alcohol abuse. EKG normal sinus rhythm rate 92 left bundle branch block and left atrial enlargement. CXR cardiomegally (improved from prior which was CHF). Labs with normal WBC, anemia, normal platelets. Normal lipase and troponin. Magnesium low. INR 1.2. BAL = 57. Magnesium ordered. Patient improved with treatment and able to tolerate oral intake without vomiting. No LEON or orthopnea. States pain resolved. Discussed findings with patient and with focus on need for further treatment for CHF. Also confronted about + BAL and need to abstain and consider return to AA. No medical emergency at this time. Patient stable for outpatient observation and treatment. Laboratory Tests Test 06/30/19 17:40 06/30/19 17:50 White Blood Count 6.8 K/UL (4.8-10.8) Red Blood Count 3.89 M/UL (4.70-6.10) L Hemoglobin 11.9 G/DL (14.2-18.0) L Hematocrit 35.3 % (42.0-52.0) L Mean Corpuscular Volume 91 FL (80-99) Mean Corpuscular Hemoglobin 30.5 PG (27.0-31.0) Mean Corpuscular Hemoglobin Concent 33.6 G/DL (32.0-36.0) Red Cell Distribution Width 12.5 % (11.6-14.8) Platelet Count 192 K/UL (150-450) Mean Platelet Volume 6.9 FL (6.5-10.1) Neutrophils (%) (Auto) 71.5 % (45.0-75.0) Lymphocytes (%) (Auto) 19.2 % (20.0-45.0) L Monocytes (%) (Auto) 5.5 % (1.0-10.0) Eosinophils (%) (Auto) 2.6 % (0.0-3.0) Basophils (%) (Auto) 1.3 % (0.0-2.0) Prothrombin Time 12.2 SEC (9.30-11.50) H Prothrombin Time INR 1.2 (0.9-1.1) H PTT 29 SEC (23-33) Sodium Level 138 MMOL/L (136-145) Potassium Level 4.0 MMOL/L (3.5-5.1) Chloride Level 104 MMOL/L (98-107) Carbon Dioxide Level 21 MMOL/L (21-32) Anion Gap 13 mmol/L (5-15) Blood Urea Nitrogen 22 mg/dL (7-18) H Creatinine 1.1 MG/DL (0.55-1.30) Estimate Glomerular Filtration Rate > 60 mL/min (>60) Glucose Level 88 MG/DL (74-106) Calcium Level 8.1 MG/DL (8.5-10.1) L Phosphorus Level 4.2 MG/DL (2.5-4.9) Magnesium Level 1.5 MG/DL (1.8-2.4) L Total Bilirubin 1.0 MG/DL (0.2-1.0) Aspartate Amino Transferase (AST) 37 U/L (15-37) Alanine Aminotransferase (ALT) 34 U/L (12-78) Alkaline Phosphatase 122 U/L (46-116) H Ammonia 13 umol/L (11-32) Total Creatine Kinase 153 U/L (26-308) Troponin I 0.015 ng/mL (0.000-0.056) Total Protein 7.9 G/DL (6.4-8.2) Albumin 3.3 G/DL (3.4-5.0) L Globulin 4.6 g/dL Albumin/Globulin Ratio 0.7 (1.0-2.7) L Lipase 144 U/L (73-393) Salicylates Level 2.5 ug/mL (2.8-20) L Serum Alcohol 57 mg/dL Urine Color Yellow Urine Appearance Clear Urine pH 5 (4.5-8.0) Urine Specific [place] 1.020 (1.005-1.035) Urine Protein 3+ (NEGATIVE) H Urine Glucose (UA) Negative (NEGATIVE) Urine Ketones Negative (NEGATIVE) Urine Blood Negative (NEGATIVE) Urine Nitrite Negative (NEGATIVE) Urine Bilirubin Negative (NEGATIVE) Urine Urobilinogen Normal MG/DL (0.0-1.0) Urine Leukocyte Esterase Negative (NEGATIVE) Urine RBC 0-2 /HPF (0 - 0) H Urine WBC 0-2 /HPF (0 - 0) Urine Squamous Epithelial Cells None /LPF (NONE/OCC) Urine Bacteria Few /HPF (NONE) Urine Opiates Screen Negative (NEGATIVE) Urine Barbiturates Screen Negative (NEGATIVE) Phencyclidine (PCP) Screen Negative (NEGATIVE) Urine Amphetamines Screen Negative (NEGATIVE) Urine Benzodiazepines Screen Negative (NEGATIVE) Urine Cocaine Screen Negative (NEGATIVE) Urine Marijuana (THC) Screen Negative (NEGATIVE) EKG Diagnostic Results Rate: normal Rhythm: NSR ST Segments: no acute changes - Left atrial argument and left bundle branch block Rhythm Strip Diag. Results EP Interpretation: yes Rhythm: NSR, no PVC's, no ectopy Chest X-Ray Diagnostic Results Chest X-Ray Diagnostic Results : Chest X-Ray Ordered: Yes # of Views/Limited/Complete: 1 View Indication: Other EP Interpretation: Yes Interpretation: no effusion, no pneumothorax, other - inc cor and reversal flow Impression: Other Electronically Signed by: Electronically signed by Dann Henning MD Other X-Ray Diagnostic Results Other X-Ray Diagnostic Results : X-Ray ordered: Abdomen # of Views/Limited Vs Complete: 2 View Indication: Other EP Interpretation: Yes Interpretation: nonspecific bowel gas, no sbo, other - Enlarged liver Impression: Other Electronically Signed by: Electronically signed by Dann Henning MD Last Vital Signs Date Time Temp Pulse Resp B/P (MAP) Pulse Ox O2 Delivery O2 Flow Rate FiO2 06/30/19 20:50 98.4 88 20 118/76 99 Room Air Status: improved Disposition: HOME, SELF-CARE Condition: Improved Scripts Acetaminophen (Tylenol) 325 Mg Tablet 650 MG ORAL Q6H PRN for Prn Pain/Headache/Temp > 101, #16 TAB 0 Refills Prov: Dann Henning MD 06/30/19 Famotidine* (Pepcid 20mg tablet*) 20 Mg Tablet 20 MG ORAL DAILY, #20 TAB 0 Refills Prov: Dann Henning MD 06/30/19 Ondansetron Odt* (ZOFRAN ODT*) 4 Mg Tab.rapdis 4 MG BC EVERY 8 HOURS, #8 TAB 0 Refills Prov: Dann Henning MD 06/30/19 Referrals: [facility],REFERRING (PCP) Dann Henning MD Jun 30, 2019 17:45
[2019-06-30 17:53] LABS: BASOPHILS % (AUTO) 1.3 % (0.0-2.0); EOSINOPHILS % (AUTO) 2.6 % (0.0-3.0); HEMATOCRIT 35.3 % (42.0-52.0); HEMOGLOBIN 11.9 G/DL (14.2-18.0); LYMPHOCYTES % (AUTO) 19.2 % (20.0-45.0); MEAN CORPUSCULAR VOLUME 91 FL (80-99); MONOCYTES % (AUTO) 5.5 % (1.0-10.0); NEUTROPHILS % (AUTO) 71.5 % (45.0-75.0); PLATELET COUNT 192 K/UL (150-450); RED BLOOD COUNT 3.89 M/UL (4.70-6.10); RED CELL DISTRIBUTION WIDTH 12.5 % (11.6-14.8); WHITE BLOOD COUNT 6.8 K/UL (4.8-10.8)
--- NOTE | 2019-06-30 17:53 | NUR ---
ED Nurse Note: x-ray at bedside.
[2019-06-30 17:58] LABS: APPEARANCE,URINE CLEAR; BILIRUBIN, URINE NEGATIVE (NEGATIVE); GLUCOSE, URINE (UA) NEGATIVE (NEGATIVE); KETONES,URINE NEGATIVE (NEGATIVE); LEUKOCYTE ESTERASE ,URINE NEGATIVE (NEGATIVE); NITRITE,URINE NEGATIVE (NEGATIVE); PH,URINE 5 (4.5-8.0); PROTEIN,URINE 3+ (NEGATIVE); UROBILINOGEN,URINE NORMAL MG/DL (0.0-1.0)
[2019-06-30 18:00] LABS: COLOR,URINE YELLOW
[2019-06-30 18:03] LABS: ANION GAP 13 mmol/L (5-15); BLOOD UREA NITROGEN 22 mg/dL (7-18); CALCIUM 8.1 MG/DL (8.5-10.1); CARBON DIOXIDE 21 MMOL/L (21-32); CHLORIDE 104 MMOL/L (98-107); CREATININE 1.1 MG/DL (0.55-1.30); SODIUM 138 MMOL/L (136-145)
[2019-06-30 18:06] LABS: AMMONIA 13 umol/L (11-32)
[2019-06-30 18:07] LABS: INR 1.2 (0.9-1.1)
[2019-06-30 18:09] LABS: ALANINE AMINOTRANSFERASE 34 U/L (12-78); ALBUMIN 3.3 G/DL (3.4-5.0); ALBUMIN/GLOBULIN RATIO 0.7 (1.0-2.7); ALKALINE PHOSPHATASE 122 U/L (46-116); ASPARTATE AMINO TRANSFERASE 37 U/L (15-37); CREATINE KINASE 153 U/L (26-308)
[2019-06-30 18:32] LABS: PHOSPHORUS 4.2 MG/DL (2.5-4.9)
--- NOTE | 2019-06-30 19:14 | Diagnostic Imaging Report ---
EXAM: XR Chest, 1 View CLINICAL HISTORY: ABD PAIN TECHNIQUE: Frontal view of the chest. COMPARISON: April 29, 2019 chest x-ray. FINDINGS: Lungs: Unremarkable. No consolidation. Pleural space: Unremarkable. No pneumothorax. Heart: Moderate cardiomegaly. Mediastinum: Unremarkable. Bones/joints: Unremarkable. IMPRESSION: Moderate cardiomegaly. Otherwise no acute findings on chest x-ray.
--- NOTE | 2019-06-30 19:15 | NUR ---
HAND-OFF: Report given to GRIS Kruger. no orders to carry at this time.
--- NOTE | 2019-06-30 19:15 | Diagnostic Imaging Report ---
EXAM: XR Abdomen, 2 Views CLINICAL HISTORY: ABD PAIN TECHNIQUE: Frontal view of the abdomen/pelvis with upright view of the abdomen. COMPARISON: No relevant prior studies available. FINDINGS: Intraperitoneal space: No free air. Gastrointestinal tract: There is some gas-filled bowel loops in the midabdomen ans some are mildly distended. There is otherwise paucity of bowel gas in the abdomen. Bones/joints: Unremarkable. IMPRESSION: Findings suggesting bowel obstruction or early ileus. No perforation or mass effect.
--- NOTE | 2019-06-30 19:30 | NUR ---
ED Nurse Note: Recieved report to resume care, pt on jaspreet awake and oriented x 4, IV site patent with meds infusing, tolerating well, family at bedside, pt on cardiac monitoring, will resume care as ordered and continue to closely monitor.
[2019-06-30 19:55] VITALS: BP 118/76
[2019-06-30] MEDS ORDERED: TYLENOL325 MG ORAL (20:44)
[2019-06-30] MEDS ORDERED: ONDANSETRON ODT4 MG BC (20:44)
[2019-06-30] MEDS ORDERED: FAMOTIDINE20 MG ORAL (20:44)
--- NOTE | 2019-06-30 20:45 | NUR ---
ER DISCHARGE NOTE: Patient is cleared to be discharged per ERMD, pt is aox4, on room air, with stable vital signs. pt was given dc and prescription instructions, pt was able to verbalize understanding, pt id band and iv site removed without complications. pt is able to ambulate with steady gait. pt took all belongings.
[2019-06-30 20:50] VITALS: BP 118/76
== END 2019-06-30 21:00 | disposition home or self-care (01) ==
LOC: EMR 17:22
DX: K29.20 Alcoholic gastritis without bleeding (principal); F10.188 Alcohol abuse with other alcohol-induced disorder; I50.812 Chronic right heart failure; E83.42 Hypomagnesemia; I10 Essential (primary) hypertension; I51.9 Heart disease, unspecified; Y90.2 Blood alcohol level of 40-59 mg/100 ml
CPT/HCPCS: 36415; 71045; 74018; 80053; 80307; 81003; 82140; 82550; 83690; 83735; 84100; 84484; 85025; 85610; 85730; 93005; 96374; 96375; G0480; G0481; J2405; S0028; Z7502; 99284

== ENCOUNTER 2020-02-07 18:30 | Inpatient (IN) | payer OTHER ==
[~2020-02-07] VITALS: Ht 167.6 cm; Wt 77.6 kg
[~2020-02-07 18:30] MED LIST changes: +ASPIRIN EC81 MG ORAL; +ATORVASTATIN CA10 MG ORAL; +COZAAR25 MG ORAL; +DIGOXIN0.125 MG/2 ORAL; +FAMOTIDINE20 MG ORAL; +ONDANSETRON ODT4 MG BC; +SPIRONOLACTONE100 MG ORAL; +TYLENOL325 MG ORAL; +VITAMIN B-1100 MG ORAL
[2020-02-07] MEDS ORDERED: Ketorolac 30mg Inj IV ONE (18:45)
[2020-02-07 19:00] VITALS: BP 112/69
[2020-02-07 19:09] LABS: BASOPHILS % (AUTO) 1.4 % (0.0-2.0); EOSINOPHILS % (AUTO) 1.2 % (0.0-3.0); HEMATOCRIT 35.8 % (42.0-52.0); HEMOGLOBIN 11.4 G/DL (14.2-18.0); LYMPHOCYTES % (AUTO) 17.6 % (20.0-45.0); MEAN CORPUSCULAR VOLUME 101 FL (80-99); MONOCYTES % (AUTO) 6.6 % (1.0-10.0); NEUTROPHILS % (AUTO) 73.3 % (45.0-75.0); PLATELET COUNT 180 K/UL (150-450); RED BLOOD COUNT 3.56 M/UL (4.70-6.10); RED CELL DISTRIBUTION WIDTH 15.9 % (11.6-14.8)
[2020-02-07 19:17] LABS: ANION GAP 9 mmol/L (5-15); BLOOD UREA NITROGEN 24 mg/dL (7-18); CALCIUM 8.2 MG/DL (8.5-10.1); CARBON DIOXIDE 27 MMOL/L (21-32); CHLORIDE 99 MMOL/L (98-107); CREATININE 1.6 MG/DL (0.55-1.30); INR 1.5 (0.9-1.1); SODIUM 135 MMOL/L (136-145)
[2020-02-07 19:27] LABS: ALANINE AMINOTRANSFERASE 18 U/L (12-78); ALBUMIN 3.1 G/DL (3.4-5.0); ALBUMIN/GLOBULIN RATIO 0.7 (1.0-2.7); ALKALINE PHOSPHATASE 123 U/L (46-116); ASPARTATE AMINO TRANSFERASE 49 U/L (15-37); BILIRUBIN,TOTAL 2.3 MG/DL (0.2-1.0)
[2020-02-07 19:29] LABS: BILIRUBIN,DIRECT 0.8 MG/DL (0.0-0.3)
--- NOTE | 2020-02-07 20:03 | Emergency Room Report ---
History of Present Illness General Chief Complaint: General Complaint Source: Patient (Juanita Muñoz) Present Illness HPI 49-year-old male with history of alcohol abuse who was recently hospitalized at [facility] for alcohol withdrawal and chest pain here complaining of shortness of breath, chest pain, nausea vomiting and diffuse abdominal pain x2 days. Patient was discharged from [facility] on February 02, 2020. Patient reports that he had not had any alcoholic beverages in the past few days. Denies any drug use. Respiratory rate is 31 upon arrival however O2 sat is 97%. Patient is able to speak in full sentences. When speaking to me patient is breathing normally. Patient reports that he cannot sleep in the supine position and wanted the head of the bed to be raised. Appears to have history of CHF however is not under treatment of manager banking. Denies any tobacco smoke and drug use. Has not taken medication for symptom relief. Denies pleuritic chest pain. (Juanita Muñoz) Allergies: Coded Allergies: NO KNOWN ALLERGIES (Unverified Allergy, Unknown, 07/21/18) COVID-19 Screening Contact w/high risk pt: No Experienced COVID-19 symptoms?: Yes COVID-19 Testing performed PUBLIC INFORMATION SPECIALIST: No (Juanita Muñoz) Patient History Past Medical History: see triage record Past Surgical History: none Pertinent Family History: none Social History: Reports: alcohol use Immunizations: UTD Reviewed Nursing Documentation: PMH: Agreed; PSxH: Agreed (Juanita Muñoz) Nursing Documentation-PMH Past Medical History: No History, Except For Hx Cardiac Problems: Yes Hx Hypertension: Yes Hx Diabetes: No Hx Cancer: No Hx Gastrointestinal Problems: No Hx Neurological Problems: No (Juanita Muñoz) Review of Systems All Other Systems: negative except mentioned in HPI (Juanita Muñoz) Physical Exam Vital Signs Date Time Temp Pulse Resp B/P (MAP) Pulse Ox O2 Delivery O2 Flow Rate FiO2 02/07/20 18:35 98.4 99 31 99/67 (78) 97 Room Air 02/07/20 19:00 2.0 02/07/20 19:00 96 Sp02 EP Interpretation: reviewed, abnormal - RR 31 General Appearance: alert, non-toxic, mild distress Head: normocephalic, atraumatic Eyes: bilateral eye normal inspection, bilateral eye PERRL Neck: full range of motion, supple/symm/no masses Respiratory: chest non-tender, lungs clear, normal breath sounds, no rhonchi, no wheezing, speaking full sentences Cardiovascular #1: regular rate, rhythm, no edema Cardiovascular #2: 2+ carotid (R), 2+ carotid (L), 2+ radial (R), 2+ femoral (R ), 2+ dorsalis pedis (R), 2+ dorsalis pedis (L) Gastrointestinal: normal bowel sounds, non tender, soft, non-distended, no guarding, no rebound Rectal: deferred Genitourinary: no CVA tenderness Musculoskeletal: back normal, normal range of motion, no calf tenderness, gait/ station normal, non-tender Neurologic: alert, motor strength/tone normal, oriented x3, sensory intact, responsive, speech normal Psychiatric: judgement/insight normal, memory normal, mood/affect normal, no suicidal/homicidal ideation Skin: no rash Lymphatic: no adenopathy (Juanita Muñoz) Medical Decision Making PA Attestation All diagnoses and treatment plans were reviewed and discussed with my supervising physician Dr. Odonnell (Juanita Muñoz) PA Attestation I participate in the care of this patient along with JASON Snyder Briefly, this a 49-year-old male with history of CHF and alcohol abuse. Last ejection fraction 20% 2019. He was recently discharged for alcohol withdrawal and CHF exacerbation started on 40 mg Lasix daily. Patient presents today complaining of abdominal discomfort vomiting and diarrhea. States he has been able to tell down any oral hydration nutrition or even medication for the past 2 days. It is been 2 to 3 days since his last dose of Lasix. He reports orthopnea, exertional dyspnea and intermittent dyspnea at rest. Denies chest pain or palpitations. Labs show elevated BN peptide, normal troponin. Chest x- ray shows mild congestion but no obvious effusion or infiltrate. Remainder of labs within normal limits. Patient saturating 93% on room air 100% with oxygen. When ambulatory he desats to 88% and feels significant dyspnea. Patient also has a urinary tract infection was treated with ceftriaxone. He will be given a dose of IV Lasix and admitted for CHF exacerbation and urinary tract infection. Will admit again to Dr. Lynch as he had previously admitted the patient. (Dante Odonnell MD) Diagnostic Impression: Primary Impression: CHF (congestive heart failure) Additional Impressions: UTI (urinary tract infection) NATALIYA (acute kidney injury) ER Course 49-year-old male with history of alcohol abuse who was recently hospitalized at [facility] for alcohol withdrawal and chest pain here complaining of shortness of breath, chest pain, nausea vomiting and diffuse abdominal pain x2 days. Patient was discharged from [facility] on February 02, 2020. Patient reports that he had not had any alcoholic beverages in the past few days. Denies any drug use. Respiratory rate is 31 upon arrival however O2 sat is 97%. Patient is able to speak in full sentences. When speaking to me patient is breathing normally. Patient reports that he cannot sleep in the supine position and wanted the head of the bed to be raised. Appears to have history of CHF however is not under treatment of manager banking. Denies any tobacco smoke and drug use. Has not taken medication for symptom relief. Denies pleuritic chest pain. Ddx considered but are not limited to: VT, Angina, COPD, GERD, CHF, Vital signs: are WNL, pt. is afebrile H&PE are most consistent with CHF, nausea and vomiting ORDERS: EKG, Chest XR, cardiac labs, CBC, CMP, UA, tox screen, ETOH serum level. ED INTERVENTIONS: NS bolus, zofran, pepcid, lasix I signed out the patient to Dr. Odonnell at 8PM Patient was admitted with diagnosis of CHF to under supervision of : Blas pt stable at time of admission [facility] Laboratory Tests Test 02/07/20 18:50 02/07/20 20:00 White Blood Count 6.0 K/UL (4.8-10.8) Red Blood Count 3.56 M/UL (4.70-6.10) L Hemoglobin 11.4 G/DL (14.2-18.0) L Hematocrit 35.8 % (42.0-52.0) L Mean Corpuscular Volume 101 FL (80-99) H Mean Corpuscular Hemoglobin 32.1 PG (27.0-31.0) H Mean Corpuscular Hemoglobin Concent 31.9 G/DL (32.0-36.0) L Red Cell Distribution Width 15.9 % (11.6-14.8) H Platelet Count 180 K/UL (150-450) Mean Platelet Volume 8.0 FL (6.5-10.1) Neutrophils (%) (Auto) 73.3 % (45.0-75.0) Lymphocytes (%) (Auto) 17.6 % (20.0-45.0) L Monocytes (%) (Auto) 6.6 % (1.0-10.0) Eosinophils (%) (Auto) 1.2 % (0.0-3.0) Basophils (%) (Auto) 1.4 % (0.0-2.0) Prothrombin Time 15.6 SEC (9.30-11.50) H Prothrombin Time INR 1.5 (0.9-1.1) H Activated Partial Thromboplast Time 31 SEC (23-33) Sodium Level 135 MMOL/L (136-145) L Potassium Level 4.0 MMOL/L (3.5-5.1) Chloride Level 99 MMOL/L (98-107) Carbon Dioxide Level 27 MMOL/L (21-32) Anion Gap 9 mmol/L (5-15) Blood Urea Nitrogen 24 mg/dL (7-18) H Creatinine 1.6 MG/DL (0.55-1.30) H Estimated Glomerular Filtration Rate 46.0 mL/min (>60) Glucose Level 100 MG/DL (74-106) Calcium Level 8.2 MG/DL (8.5-10.1) L Total Bilirubin 2.3 MG/DL (0.2-1.0) H Direct Bilirubin 0.8 MG/DL (0.0-0.3) H Aspartate Amino Transferase (AST) 49 U/L (15-37) H Alanine Aminotransferase (ALT) 18 U/L (12-78) Alkaline Phosphatase 123 U/L (46-116) H Troponin I 0.033 ng/mL (0.000-0.056) Pro-B-Type Natriuretic Peptide 19322 pg/mL (0-125) H Total Protein 7.6 G/DL (6.4-8.2) Albumin 3.1 G/DL (3.4-5.0) L Globulin 4.5 g/dL Albumin/Globulin Ratio 0.7 (1.0-2.7) L Lipase 104 U/L (73-393) Serum Alcohol 3 mg/dL Urine Color Lisset Urine Appearance Slightly cloudy Urine pH 5 (4.5-8.0) Urine Specific [place] 1.020 (1.005-1.035) Urine Protein 4+ (NEGATIVE) H Urine Glucose (UA) Negative (NEGATIVE) Urine Ketones 2+ (NEGATIVE) H Urine Blood Negative (NEGATIVE) Urine Nitrite Positive (NEGATIVE) H Urine Bilirubin 2+ (NEGATIVE) H Urine Ictotest Positive (NEGATIVE) Urine Urobilinogen 4 MG/DL (0.0-1.0) H Urine Leukocyte Esterase 2+ (NEGATIVE) H Urine RBC 0-2 /HPF (0 - 0) H Urine WBC 10-15 /HPF (0 - 0) H Urine Squamous Epithelial Cells None /LPF (NONE/OCC) Urine Bacteria Many /HPF (NONE) H Urine Hyaline Casts 0-2 /LPF (NONE) H Urine Other Casts 0-2 /LPF (NONE) H Urine Opiates Screen Negative (NEGATIVE) Urine Barbiturates Screen Negative (NEGATIVE) Phencyclidine (PCP) Screen Negative (NEGATIVE) Urine Amphetamines Screen Negative (NEGATIVE) Urine Benzodiazepines Screen Positive (NEGATIVE) H Urine Cocaine Screen Negative (NEGATIVE) Urine Marijuana (THC) Screen Negative (NEGATIVE) (Dante Odonnell MD) EKG Diagnostic Results Rate: normal Rhythm: NSR ST Segments: no acute changes Other Impression no acute st changes (Juanita Muñoz) Chest X-Ray Diagnostic Results Chest X-Ray Diagnostic Results : Chest X-Ray Ordered: Yes # of Views/Limited/Complete: 1 View Indication: Shortness of Breath EP Interpretation: Yes PA Xray: Interpretation reviewed, by supervising MD, and agrees with findings. Interpretation: no consolidation, no effusion, no pneumothorax, other - cardiomegaly Impression: Other - cardiomegaly Electronically Signed by: Juanita Briones PA-C (Juanita Muñoz) Last Vital Signs Date Time Temp Pulse Resp B/P (MAP) Pulse Ox O2 Delivery O2 Flow Rate FiO2 02/07/20 19:00 98 29 Nasal Cannula 2.0 96 02/07/20 19:00 98.4 112/69 96 (Juanita Muñoz) Disposition: ADMITTED INPATIENT Condition: Serious Referrals: [facility],REFERRING (PCP) Juanita Muñoz Feb 07, 2020 20:02 Dante Odonnell MD Feb 07, 2020 20:08
[2020-02-07 20:59] LABS: APPEARANCE,URINE SLIGHTLY CLOUDY; BILIRUBIN, URINE 2+ (NEGATIVE); COLOR,URINE AMBER; GLUCOSE, URINE (UA) NEGATIVE (NEGATIVE); KETONES,URINE 2+ (NEGATIVE); LEUKOCYTE ESTERASE ,URINE 2+ (NEGATIVE); NITRITE,URINE POSITIVE (NEGATIVE); PH,URINE 5 (4.5-8.0); PROTEIN,URINE 4+ (NEGATIVE); UROBILINOGEN,URINE 4 MG/DL (0.0-1.0)
[2020-02-07 21:00] VITALS: BP 121/72
[2020-02-07] MEDS ORDERED: cefTRIAXone 1 GM in NS 55 ML IVPB ONE (21:15)
[2020-02-07 22:29] VITALS: BP 92/60
[2020-02-08] VITALS (7 sets, daily range): BP systolic 87–116; BP diastolic 61–75
[2020-02-08] MEDS ORDERED: LORazepam 1mg tab ORAL PRN (05:15)
[2020-02-08] MEDS: Aspirin Baby 81mg ORAL SCH (10:20)
[2020-02-08] MEDS: Spironolactone 25mg tab ORAL SCH (10:20)
[2020-02-08] MEDS: Thiamine 100mg tab ORAL SCH (10:20)
--- NOTE | 2020-02-08 11:18 | Diagnostic Imaging Report ---
Procedure: XRAY Chest 1v Reason for study: Reason For Exam: SOB Comparison films: 01/30/2020. FINDINGS: A single one view chest is obtained. Vascularity is normal. Hazy densities in the right lung base noted perhaps early infiltrate. There is cardiomegaly and small right effusion. The bony thorax appear unremarkable. IMPRESSION: Mild hazy infiltrate right lung base. Cardiomegaly and small right effusion.
--- NOTE | 2020-02-08 11:46 | Cardiac Electrophysiology PN ---
Subjective Subjective [id number] Objective Last 24 Hour Vital Signs Date Time Temp Pulse Resp B/P (MAP) Pulse Ox O2 Delivery O2 Flow Rate FiO2 02/08/20 08:00 78 02/08/20 08:00 97.9 74 20 104/63 (77) 98 02/08/20 04:00 73 02/08/20 04:00 97.9 75 19 109/71 (84) 98 02/08/20 02:25 Nasal Cannula 2.0 02/08/20 00:00 97.5 75 20 116/75 (89) 98 02/08/20 00:00 79 02/07/20 22:34 81 02/07/20 22:29 98.6 81 16 92/60 (71) 100 02/07/20 22:29 98.6 81 16 92/60 (71) 100 02/07/20 22:00 98.4 86 22 121/72 100 Nasal Cannula 2.0 100 02/07/20 21:00 98.4 86 22 121/72 100 Nasal Cannula 2.0 100 02/07/20 19:26 98.4 02/07/20 19:00 98 29 Nasal Cannula 2.0 96 02/07/20 19:00 98.4 98 29 112/69 96 Nasal Cannula 2.0 02/07/20 18:35 98.4 99 31 99/67 (78) 97 Room Air Intake and Output 02/07/20 02/08/20 19:00 07:00 Intake Total 0 ml 240 ml Balance 0 ml 240 ml Intake Oral 0 ml 240 ml # Voids 2 # Bowel Movements 1 Laboratory Tests Test 02/07/20 18:50 02/07/20 20:00 02/08/20 09:20 White Blood Count 6.0 K/UL (4.8-10.8) Red Blood Count 3.56 M/UL (4.70-6.10) L Hemoglobin 11.4 G/DL (14.2-18.0) L Hematocrit 35.8 % (42.0-52.0) L Mean Corpuscular Volume 101 FL (80-99) H Mean Corpuscular Hemoglobin 32.1 PG (27.0-31.0) H Mean Corpuscular Hemoglobin Concent 31.9 G/DL (32.0-36.0) L Red Cell Distribution Width 15.9 % (11.6-14.8) H Platelet Count 180 K/UL (150-450) Mean Platelet Volume 8.0 FL (6.5-10.1) Neutrophils (%) (Auto) 73.3 % (45.0-75.0) Lymphocytes (%) (Auto) 17.6 % (20.0-45.0) L Monocytes (%) (Auto) 6.6 % (1.0-10.0) Eosinophils (%) (Auto) 1.2 % (0.0-3.0) Basophils (%) (Auto) 1.4 % (0.0-2.0) Prothrombin Time 15.6 SEC (9.30-11.50) H Prothromb Time International Ratio 1.5 (0.9-1.1) H Activated Partial Thromboplast Time 31 SEC (23-33) Sodium Level 135 MMOL/L (136-145) L Potassium Level 4.0 MMOL/L (3.5-5.1) Chloride Level 99 MMOL/L (98-107) Carbon Dioxide Level 27 MMOL/L (21-32) Anion Gap 9 mmol/L (5-15) Blood Urea Nitrogen 24 mg/dL (7-18) H Creatinine 1.6 MG/DL (0.55-1.30) H Estimat Glomerular Filtration Rate 46.0 mL/min (>60) Glucose Level 100 MG/DL (74-106) Calcium Level 8.2 MG/DL (8.5-10.1) L Total Bilirubin 2.3 MG/DL (0.2-1.0) H Direct Bilirubin 0.8 MG/DL (0.0-0.3) H Aspartate Amino Transf (AST/SGOT) 49 U/L (15-37) H Alanine Aminotransferase (ALT/SGPT) 18 U/L (12-78) Alkaline Phosphatase 123 U/L (46-116) H Troponin I 0.033 ng/mL (0.000-0.056) 0.023 ng/mL (0.000-0.056) Pro-B-Type Natriuretic Peptide 90757 pg/mL (0-125) H Total Protein 7.6 G/DL (6.4-8.2) Albumin 3.1 G/DL (3.4-5.0) L Globulin 4.5 g/dL Albumin/Globulin Ratio 0.7 (1.0-2.7) L Lipase 104 U/L (73-393) Serum Alcohol 3 mg/dL Urine Color Lisset Urine Appearance Slightly cloudy Urine pH 5 (4.5-8.0) Urine Specific [place] 1.020 (1.005-1.035) Urine Protein 4+ (NEGATIVE) H Urine Glucose (UA) Negative (NEGATIVE) Urine Ketones 2+ (NEGATIVE) H Urine Blood Negative (NEGATIVE) Urine Nitrite Positive (NEGATIVE) H Urine Bilirubin 2+ (NEGATIVE) H Urine Ictotest Positive (NEGATIVE) Urine Urobilinogen 4 MG/DL (0.0-1.0) H Urine Leukocyte Esterase 2+ (NEGATIVE) H Urine RBC 0-2 /HPF (0 - 0) H Urine WBC 10-15 /HPF (0 - 0) H Urine Squamous Epithelial Cells None /LPF (NONE/OCC) Urine Bacteria Many /HPF (NONE) H Urine Hyaline Casts 0-2 /LPF (NONE) H Urine Other Casts 0-2 /LPF (NONE) H Urine Opiates Screen Negative (NEGATIVE) Urine Barbiturates Screen Negative (NEGATIVE) Phencyclidine (PCP) Screen Negative (NEGATIVE) Urine Amphetamines Screen Negative (NEGATIVE) Urine Benzodiazepines Screen Positive (NEGATIVE) H Urine Cocaine Screen Negative (NEGATIVE) Urine Marijuana (THC) Screen Negative (NEGATIVE) Microbiology Date/Time Source Procedure Growth Status 02/07/20 20:00 Urine,Clean Catch Urine Culture - Preliminary NO GROWTH Resulted Natanael Lou MD Feb 08, 2020 11:46
[2020-02-08] MEDS ORDERED: 1/2 NS 1000ml IV ONE (13:55)
--- NOTE | 2020-02-08 15:00 | Consultation ---
DATE OF CONSULTATION: 02/08/2020 PULMONARY CONSULTATION CONSULTING PHYSICIAN: Baljinder Shi MD. HISTORY OF PRESENT ILLNESS: This is a 49-year-old male with history of alcohol abuse, previously admitted to this hospital for alcohol withdrawal and chest pain. He came to the hospital again with shortness of breath, chest pain, nausea, and vomiting. The patient has also been discharged from the ER recently in mid January. The patient was tachypneic, however, he was normoxemic. The patient denies any further problems. He underwent lab testing, which is discussed below, essentially normal except for a creatinine 1.6. Troponin 0.03 and 0.02. Bilirubin is 2.3, which is elevated with mildly elevated AST. ALT is normal, alkaline phosphatase 123. Toxicology is positive for benzodiazepines. Urinalysis shows few pus cells. Coags are negative. He underwent imaging studies in as early as early January, which showed mild CHF. REVIEW OF SYSTEMS: Denies any headaches, hematemesis, melena, or hematochezia. PHYSICAL EXAMINATION: GENERAL: Reveals a 49-year-old male. VITAL SIGNS: Blood pressure is 90/60, heart rate 94, respirations 22. O2 saturation 93% on 2L oxygen. HEENT: Unremarkable. CHEST: Showed decreased breath sounds bilaterally. HEART: Normal heart sounds. ABDOMEN: Soft. EXTREMITIES: There is no edema. LABORATORY DATA: As discussed above. IMPRESSION: 1. Suspect CHF. 2. Cardiomyopathy with low EF. 3. History of alcohol withdrawal. DISCUSSION: Admit to the hospital. We will order oxygen. The patient needs diuresis, which I will order. Consider antibiotics. Continue Aldactone. We will start Lasix. We will follow carefully. Baljinder Shi M.D. DR: PRAVEEN JOB#: [id number] CC:
--- NOTE | 2020-02-08 18:45 | Consultation ---
DATE OF CONSULTATION: 02/08/2020 CARDIOLOGY CONSULTATION CONSULTING PHYSICIAN: Natanael Lou MD REFERRING PHYSICIAN: Kam Lynch MD REASON FOR CONSULTATION: Management of congestive heart failure. HISTORY OF PRESENT ILLNESS: The patient is a 49-year-old gentleman with history of hypertension and severe nonischemic cardiomyopathy with ejection fraction of around 15% since July 2018 recent echocardiogram at [facility]. The patient also has history of alcohol use and was admitted just last week with increasing shortness of breath. The patient also was vomiting following drinking alcohol. The patient presented to the emergency room complaining of chest pain, shortness of breath, nausea, vomiting, diffuse abdominal pain for two days. The patient was discharged on 02/02/2020. REVIEW OF SYSTEMS: Review of systems was negative other than what is mentioned in the history of present illness. PAST MEDICAL HISTORY: As mentioned above. FAMILY HISTORY: Noncontributory. SOCIAL HISTORY: The patient continued to drink alcohol, but does not use any drugs. PHYSICAL EXAMINATION: VITAL SIGNS: Show blood pressure of 104/63, pulse 74, respirations 18, and temperature 97.9. HEAD AND NECK: Shows positive JVD. LUNGS: Decreased breath sounds. CARDIOVASCULAR: Regular S1 and S2 with no gallop. ABDOMEN: Soft. EXTREMITIES: A 1+ pitting edema. LABORATORY DATA: Labs show white count of 6, hemoglobin 11.4, hematocrit 35.8, and platelet count of 180. Sodium is 135, potassium 4.0, BUN of 24, creatinine 1.6. Troponin is negative x2. His BNP is 15,602 . Urine toxicology screen is positive for benzodiazepine. ASSESSMENT AND PLAN: 1. 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 His EKG also showed complete left bundle-branch block. We will resume the patient's heart failure medication including Lasix 40 mg IV b.i.d., Coreg 3.125 mg b.i.d., Aldactone 25 mg daily and add lisinopril to his medical regimen. Metoprolol will be discontinued. If the patient remains alcohol free for more than three months, then we will consider placing a biventricular defibrillator complete left bundle-branch block. 2. Complete left bundle-branch block. 3. History of heavy alcohol use, on thiamine, folate, and Ativan. Thank you very much, Dr. Lynch, for allowing me to participate in the care of this patient. Please do not hesitate to contact me for any questions regarding my evaluation. Sincerely, Natanael Lou M.D. DR: Enrrique JOB#: [id number] CC:
[2020-02-09] VITALS: BP 98/70
[2020-02-09 04:00] VITALS: BP 106/67
[2020-02-09 08:00] VITALS: BP 103/72
[2020-02-09 08:45] VITALS: BP 92/55
--- NOTE | 2020-02-09 08:48 | Pulmonology Progress Note ---
Subjective Interval Events: Seen by cardiology Constitutional: Reports: no symptoms HEENT: Repors: no symptoms Respiratory: Reports: dry cough Cardiovascular: Reports: no symptoms Gastrointestinal/Abdominal: Reports: no symptoms Allergies: Coded Allergies: NO KNOWN ALLERGIES (Unverified Allergy, Unknown, 07/21/18) Objective Last 24 Hour Vital Signs Date Time Temp Pulse Resp B/P (MAP) Pulse Ox O2 Delivery O2 Flow Rate FiO2 02/09/20 08:45 92/55 (67) 02/09/20 08:00 98.8 81 20 103/72 (82) 97 02/09/20 04:00 98.6 70 20 106/67 (80) 02/09/20 04:00 77 02/09/20 01:15 99.3 02/09/20 00:00 100.4 79 20 98/70 (79) 96 02/09/20 00:00 76 02/08/20 21:58 Room Air 02/08/20 21:33 96/61 (73) 02/08/20 20:33 81 87/61 02/08/20 20:00 99.3 81 20 87/61 (70) 98 02/08/20 20:00 82 02/08/20 16:00 97.7 69 20 101/63 (76) 92 02/08/20 16:00 72 02/08/20 12:15 74 99/63 02/08/20 12:00 74 02/08/20 12:00 98.1 70 18 99/63 (75) 96 02/08/20 09:00 Room Air Intake and Output 02/08/20 02/09/20 19:00 07:00 Intake Total 750 ml Balance 750 ml Intake Oral 750 ml # Voids 3 General Appearance: no acute distress HEENT: normocephalic Respiratory: chest wall non-tender, decreased breath sounds Cardiovascular: normal peripheral pulses Microbiology Date/Time Source Procedure Growth Status 02/07/20 20:00 Urine,Clean Catch Urine Culture - Final Gram Positive Cocci Complete Laboratory Tests 02/08/20 09:20: Troponin I 0.023 02/09/20 07:40: White Blood Count [Pending], Red Blood Count [Pending], Hemoglobin [Pending], Hematocrit [Pending], Mean Corpuscular Volume [Pending], Mean Corpuscular Hemoglobin [Pending], Mean Corpuscular Hemoglobin Concent [Pending], Red Cell Distribution Width [Pending], Platelet Count [Pending], Mean Platelet Volume [ Pending], Neutrophils (%) (Auto) [Pending], Lymphocytes (%) (Auto) [Pending], Monocytes (%) (Auto) [Pending], Eosinophils (%) (Auto) [Pending], Basophils (%) (Auto) [Pending], Sodium Level [Pending], Potassium Level [Pending], Chloride Level [Pending], Carbon Dioxide Level [Pending], Blood Urea Nitrogen [Pending], Creatinine [Pending], Estimat Glomerular Filtration Rate [Pending], Glucose Level [Pending], Calcium Level [Pending], Pro-B-Type Natriuretic Peptide [ Pending] Current Medications Medications (Trade) Dose Ordered Sig/Tiara Route PRN Reason Start Time Stop Time Status Last Admin Dose Admin Acetaminophen (Tylenol) 650 mg Q4H PRN ORAL Mild Pain (Pain Scale 1-3) 02/09/20 00:30 03/10/20 00:29 02/09/20 00:43 Aspirin (ASA) 81 mg DAILY ORAL 02/08/20 09:00 03/24/20 08:59 02/08/20 10:20 Atorvastatin Calcium (Lipitor) 10 mg BEDTIME ORAL 02/08/20 21:00 05/08/20 20:59 02/08/20 20:22 Carvedilol (Coreg) 3.125 mg EVERY 12 HOURS ORAL 02/09/20 09:00 03/09/20 12:14 Furosemide (Lasix) 40 mg EVERY 12 HOURS IV 02/09/20 09:00 03/09/20 20:59 Lisinopril (ZestriL) 2.5 mg DAILY ORAL 02/09/20 09:00 03/10/20 08:59 Lorazepam (Ativan) 1 mg Q6H PRN ORAL For Anxiety 02/08/20 05:15 02/15/20 05:14 Spironolactone (Aldactone) 25 mg DAILY ORAL 02/08/20 09:00 03/09/20 08:59 02/08/20 10:20 Thiamine HCl (Vitamin B1) 100 mg DAILY ORAL 02/08/20 09:00 03/09/20 08:59 02/08/20 10:20 Assessment/Plan Assessment/Plan IMPRESSION: 1. CHF. 2. Cardiomyopathy with low EF. 3. History of alcohol withdrawal. DISCUSSION: Continue prn oxygen. Continue diuresis. Continue Aldactone. I will follow carefully. Miesha Yee Omar Syed MD Feb 09, 2020 08:48
[2020-02-09] MEDS: Thiamine 100mg tab ORAL SCH (08:51)
[2020-02-09] MEDS: Aspirin Baby 81mg ORAL SCH (08:51)
[2020-02-09] MEDS: Spironolactone 25mg tab ORAL SCH (08:53)
[2020-02-09 08:56] LABS: BASOPHILS % (AUTO) 2.4 % (0.0-2.0); EOSINOPHILS % (AUTO) 2.5 % (0.0-3.0); HEMATOCRIT 34.9 % (42.0-52.0); HEMOGLOBIN 11.4 G/DL (14.2-18.0); LYMPHOCYTES % (AUTO) 14.6 % (20.0-45.0); MEAN CORPUSCULAR VOLUME 99 FL (80-99); MONOCYTES % (AUTO) 10.4 % (1.0-10.0); NEUTROPHILS % (AUTO) 70.1 % (45.0-75.0); PLATELET COUNT 254 K/UL (150-450); RED BLOOD COUNT 3.53 M/UL (4.70-6.10); RED CELL DISTRIBUTION WIDTH 14.8 % (11.6-14.8); WHITE BLOOD COUNT 6.6 K/UL (4.8-10.8)
[2020-02-09] MEDS ORDERED: Lisinopril 2.5mg tab ORAL SCH (09:00)
[2020-02-09 09:12] LABS: ANION GAP 12 mmol/L (5-15); BLOOD UREA NITROGEN 37 mg/dL (7-18); CALCIUM 7.6 MG/DL (8.5-10.1); CARBON DIOXIDE 24 MMOL/L (21-32); CHLORIDE 103 MMOL/L (98-107); CREATININE 1.5 MG/DL (0.55-1.30); SODIUM 139 MMOL/L (136-145)
[2020-02-09] MEDS ORDERED: Levofloxacin 750mg tab ORAL SCH (11:15)
[2020-02-09 12:00] VITALS: BP 98/61
--- NOTE | 2020-02-09 14:12 | Cardiac Electrophysiology PN ---
Assessment/Plan Assessment/Plan 1. 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 His EKG also showed complete left bundle-branch block. Continue Lasix 40 ., Coreg 3.125 mg b.i.d., Aldactone 25 mg daily and lisinopril. If the patient remains alcohol free for more than three months, then we will consider placing a biventricular defibrillator in view of complete left bundle-branch block. 2. Complete left bundle-branch block. 3. History of heavy alcohol use, on thiamine, folate, and Ativan. JOSSY RN and Dr Lynch Subjective Subjective Was evaluated by Dr Lynch. DC in progress Objective Last 24 Hour Vital Signs Date Time Temp Pulse Resp B/P (MAP) Pulse Ox O2 Delivery O2 Flow Rate FiO2 02/09/20 12:00 97.9 70 20 98/61 (73) 98 02/09/20 12:00 76 02/09/20 09:00 Room Air 02/09/20 08:54 81 92/55 02/09/20 08:54 92/55 02/09/20 08:45 92/55 (67) 02/09/20 08:00 70 02/09/20 08:00 98.8 81 20 103/72 (82) 97 02/09/20 04:00 98.6 70 20 106/67 (80) 02/09/20 04:00 77 02/09/20 01:15 99.3 02/09/20 00:00 100.4 79 20 98/70 (79) 96 02/09/20 00:00 76 02/08/20 21:58 Room Air 02/08/20 21:33 96/61 (73) 02/08/20 20:33 81 87/61 02/08/20 20:00 99.3 81 20 87/61 (70) 98 02/08/20 20:00 82 02/08/20 16:00 97.7 69 20 101/63 (76) 92 02/08/20 16:00 72 Intake and Output 02/08/20 02/09/20 19:00 07:00 Intake Total 750 ml Balance 750 ml Intake Oral 750 ml # Voids 3 Laboratory Tests Test 02/09/20 07:40 White Blood Count 6.6 K/UL (4.8-10.8) Red Blood Count 3.53 M/UL (4.70-6.10) L Hemoglobin 11.4 G/DL (14.2-18.0) L Hematocrit 34.9 % (42.0-52.0) L Mean Corpuscular Volume 99 FL (80-99) Mean Corpuscular Hemoglobin 32.2 PG (27.0-31.0) H Mean Corpuscular Hemoglobin Concent 32.6 G/DL (32.0-36.0) Red Cell Distribution Width 14.8 % (11.6-14.8) Platelet Count 254 K/UL (150-450) Mean Platelet Volume 7.8 FL (6.5-10.1) Neutrophils (%) (Auto) 70.1 % (45.0-75.0) Lymphocytes (%) (Auto) 14.6 % (20.0-45.0) L Monocytes (%) (Auto) 10.4 % (1.0-10.0) H Eosinophils (%) (Auto) 2.5 % (0.0-3.0) Basophils (%) (Auto) 2.4 % (0.0-2.0) H Sodium Level 139 MMOL/L (136-145) Potassium Level 4.0 MMOL/L (3.5-5.1) Chloride Level 103 MMOL/L (98-107) Carbon Dioxide Level 24 MMOL/L (21-32) Anion Gap 12 mmol/L (5-15) Blood Urea Nitrogen 37 mg/dL (7-18) H Creatinine 1.5 MG/DL (0.55-1.30) H Estimat Glomerular Filtration Rate 49.5 mL/min (>60) Glucose Level 84 MG/DL (74-106) Calcium Level 7.6 MG/DL (8.5-10.1) L Pro-B-Type Natriuretic Peptide 5702 pg/mL (0-125) H Microbiology Date/Time Source Procedure Growth Status 02/07/20 20:00 Urine,Clean Catch Urine Culture - Final Gram Positive Cocci Complete Objective HEAD AND NECK: Shows positive JVD. LUNGS: Decreased breath sounds. CARDIOVASCULAR: Regular S1 and S2 with no gallop. ABDOMEN: Soft. EXTREMITIES: A 1+ pitting edema. Natanael Lou MD Feb 09, 2020 14:12
--- NOTE | 2020-02-09 16:45 | History and Physical Report ---
DATE OF ADMISSION: 02/07/2020 HISTORY OF PRESENT ILLNESS: The patient is a 49-year-old male who came to the emergency room for having shortness of breath, generalized weakness, alcohol abuse, CHF, coronary artery disease. The patient was in hospital about two weeks ago with the similar problem and alcohol intoxication. The patient went home that time and since has been sober but complaining some short of breath and chest pain. Cardiology consult was obtained. The patient currently is short of breath and is improving. PAST MEDICAL HISTORY: Alcohol abuse, shingles, left bundle-branch block, UTI, congestive heart failure. MEDICATIONS: See the list. ALLERGIES: NKA. MEDICATIONS: He is taking aspirin, Lipitor, digoxin, spironolactone, vitamin B. FAMILY HISTORY: Noncontributory. SOCIAL HISTORY: Lives at home. PHYSICAL EXAMINATION: VITAL SIGNS: Blood pressure 92/55, pulse 81, respirations 18, temperature 98. HEENT: NAD. CHEST: Bilateral decreased breath sounds. CARDIOVASCULAR: Regular rhythm. No gallop. No murmur. ABDOMEN: Soft. Positive bowel sounds. Nontender. EXTREMITIES: No edema. GENITOURINARY: Deferred. LABORATORY AND DIAGNOSTIC DATA: White count 6.6, hemoglobin 11. Chemistry panel, troponins are same at 0.33. BNP was today from 15,000. EKG, nonspecific ST and T-wave changes. Urine is 2+ leukocyte esterase. ASSESSMENT: 1. Acute coronary syndrome. 2. UTI. 3. Dehydration. 4. Alcohol abuse. 5. CHF. PLAN: 1. Recommended Levaquin. 2. Continue lisinopril, carvedilol, Lasix. 3. Continue spironolactone, thiamine and folic acid. 4. The patient was recommended to quit alcohol as well as cut back on the fluids and salt. Followup as an outpatient with primary care. The patient also has UTI. 5. We will give him p.o. antibiotics for [address] Lou as as well as Dr. Shi. Rusty Lynch M.D. DR: Jamaal JOB#: [id number] CC:
--- NOTE | 2020-02-10 10:20 | CDS Physician Query ---
Clarification is required for compliance, coding accuracy, and to reflect severity of illness for this patient. Dear Rusty Lynch M.D. . Date: 02/09/2020 CDI/CDS Name: Anshu Li Clinical Documentation Statement: "49-year-old male who came to the emergency room for having shortness of breath, generalized weakness, alcohol abuse, CHF, coronary artery disease." [ H& P Rusty Lynch M.D. 02/09/20] ASSESSMENT: 1. Acute coronary syndrome. 2. UTI. 3. Dehydration. 4. Alcohol abuse. 5. CHF. Clinical Finding Show: LAB (02/06) : Chem: Sodium 135 [136-145], Calcium 8.2 [ 8.5 - 10.1] Medication: Sodium Chloride IV (02/06-02/07) Please Clarify the diagnosis associated with this finding: [ ] Hyponatremia [ ] Hypocalcemia [ ] Finding no significant [ ] Other: Diagnosis: Present on Admission: [] Yes [] No [] Clinically Undetermined Physician signature Date Please also document in your Progress Notes and/or Discharge Summary and indicate if the condition was present on admission. MTDD
--- NOTE | 2020-02-10 10:55 | CDS Physician Query ---
Clarification is required for compliance, coding accuracy, and to reflect severity of illness for this patient Dear Rusty Lynch M.D. Date: 2019 CDI/CDS Name: Anshu Li Clinical Documentation Statement: "49-year-old male who came to the emergency room for having shortness of breath, generalized weakness, alcohol abuse, CHF, coronary artery disease." [ H& P Rusty Lynch M.D. 02/09/20] ASSESSMENT: 1. Acute coronary syndrome. 2. UTI. 3. Dehydration. 4. Alcohol abuse. 5. CHF. Clinical Finding Show: 02/06 02/08 (18:50) (07:40) Creatinine 1.6 1.5 BUN 24 37 GFR 46.0 49.5 Medication: Sodium Chloride IV (02/06-02/07) Please Clarify the etiology/diagnosis associated with this findings: [] CKD Stage [] Acute Renal Failure (unspecified) [] Acute Renal Failure w/ Tubular Necrosis [] Acute Renal Failure w/ Cortical Necrosis [] Acute Renal Failure w/ Medullary Necrosis [] ESRD [] Findings are insignificant [] Other: Present on Admission: [] Yes [] No [] Clinically Undetermined Physician signature Date Please also document in your Progress Notes and/or Discharge Summary and indicate if the condition was present on admission. MTDD
--- NOTE | 2020-02-10 11:28 | CDS Physician Query ---
Clarification is required for compliance, coding accuracy, and to reflect severity of illness for this patient Dear Rusty Lynch M.D. . Date: CDI/CDS Name: Anshu Li Clinical Documentation Statement: "49-year-old male who came to the emergency room for having shortness of breath, generalized weakness, alcohol abuse, CHF, coronary artery disease." [ H& P Rusty Lynch M.D. 02/09/20] ASSESSMENT: 1. Acute coronary syndrome. 2. UTI. 3. Dehydration. 4. Alcohol abuse. 5. CHF. Clinical Finding Show: Vitals (02/06): T98.6F, Pulse 99, RR 31, BP 99/67 LAB (02/06) : Hemat; WBC 6.0, Neut%73.3 Chem: Sodium 135, Creatinine 1.6, BUN 24. Urines: Ur.Bacteria "Many" , Ur.Esterase 2+ Urines: Ur.bacteria "Moderate", Ur. Leuk Iveth 1+ Microbiology (02/06): GRAM POSITIVE COCCI, COLONY COUNT: <10,000 CFU/ML Medication: Levofloxacin IV (02/08), Cefrtiaxone IV ( 02/06), According to the clinical indications above, please indicate below the condition PHYSICIAN RESPONSE: [ ] Sepsis [ ] SIRS [ ] SIRS with organ dysfunction [ ] Septic Shock [ ] Not applicable [ ] Other: Present on Admission: [ ] Yes [ ] No [ ] Clinically Undetermined Physician signature Date Please also document in your Progress Notes and/or Discharge Summary and indicate if the condition was present on admission. LITOD
--- NOTE | 2020-02-11 13:54 | Discharge Summary ---
Discharge Summary Discharge Summary _ DATE OF ADMISSION: 02/07/2020 DATE OF DISCHARGE: 02/09/2020 DISCHARGED BY: Dr. Lynch REASON FOR ADMISSION: 49 years old male with past medical history of hypertension, hypercholesterolemia, congestive heart failure, EtOH abuse, presented complaining of shortness of breath, chest pain, nausea, vomiting and diffuse abdominal pain for 2 days. Patient was discharged from [facility] on February 02, 2020. Patient reported that he did not have any alcoholic beverages in the past few days. He denied drug use. Upon arrival patient was tachypneic with respiratory rate 31 , pulse oximetry was stable on room air. Patient was able to speak in full sentences. Upon evaluation blood pressure was low 99/67 . laboratory work-up revealed no leukocytosis ,hemoglobin 11.4, hematocrit 35.8 , platelet count 180. Stable electrolytes. BUN 24, creatinine 1.6. Glucose 100. AST 49 ALT 18 , total bilirubin 2.3 , direct bilirubin 0.8, lipase 104. Serum alcohol level 3 . Urinalysis revealed +4 protein , pyuria and many bacteria. Urine toxicology screen was positive for benzodiazepine. Troponin negative. proBNP 76948. EKG revealed sinus rhythm, no acute ischemic changes. CXR showed mild hazy infiltrate in the right lung base. Cardiomegaly and a small right pleural effusion. Patient admitted with CHF , UTI, and acute kidney injury plan CONSULTANTS: automatic vulcanizing lead operator Dr. Mendenhall pulmonary Dr. Shi HOSPITAL COURSE: Patient admitted to telemetry floor and started on diuresis with close monitoring of volumes and cardiorenal parameters . Echocardiogram demonstrated global left ventricular severe hypokinesis with ejection fraction estimated to be 10 to 50%. Moderate to severe mitral regurgitation. Severely elevated left atrial pressure grade 3. Right ventricular systolic pressure of 57 consistent with moderate to severe pulmonary hypertension. Guideline directed medical therapy provided as per as per automatic vulcanizing lead operator recommendation with diuretics ( Lasix and Spironolactone), beta abril and MISAEL inhibitor. Antiplatelet therapy with aspirin and statin continued. Serial troponins were negative. EKG nondiagnostic due to complete left bundle branch block. Per automatic vulcanizing lead operator if patient remains alcohol free for more than 3 months, consider placement of a biventricular defibrillator in view of complete left bundle branch block. Patient was counseled on abstinence from EtOH. Patient started on thiamine and folic acid. Supplemental oxygen provided and titrated to keep pulse oximetry above 92%. Patient clinically improved with diuresis. ProBNP from 56027 down to 5702. Urine culture revealed gram-positive cocci with colony count less than 10K. Antibiotic stopped. As patient clinically improved, he was able to be weaned from the oxygen. Prior to discharge pulse oximetry stable on room air Patient clinically stabilized and was ready for discharge home. FINAL DIAGNOSES: Acute on chronic CHF exacerbation Alcoholic cardiomyopathy Complete left bundle branch block Alcohol abuse DISCHARGE MEDICATIONS: See Medication Reconciliation list. DISCHARGE INSTRUCTIONS: Patient was discharged home. Follow-up with a primary care provider in 1 week. I have been assigned to dictate discharge summary for this account. I was not involved in the patient's management. Emiliana Toribio NP Feb 11, 2020 13:54
== END 2020-02-09 14:42 | disposition home or self-care (01) | DRG 720 ==
LOC: EMR 19:08 → 2E 20:55 → EDBEDREQ 21:14
DX: A41.9 Sepsis, unspecified organism (principal); I50.23 Acute on chronic systolic (congestive) heart failure; N39.0 Urinary tract infection, site not specified; I24.9 Acute ischemic heart disease, unspecified; E86.0 Dehydration; I44.7 Left bundle-branch block, unspecified; I42.6 Alcoholic cardiomyopathy; E51.9 Thiamine deficiency, unspecified; I34.0 Nonrheumatic mitral (valve) insufficiency; F10.10 Alcohol abuse, uncomplicated; N17.9 Acute kidney failure, unspecified; I27.20 Pulmonary hypertension, unspecified; E87.1 Hypo-osmolality and hyponatremia
CPT/HCPCS: 36415; 71045; 80048; 80053; 80307; 81003; 82248; 83690; 83880; 84484; 85025; 85610; 85730; 87086; 93005; 93306; 96361; 96365; 96375; 99285; G0480; J2405; J7030

== ENCOUNTER 2020-04-05 12:44 | Inpatient (IN) | payer OTHER ==
[~2020-04-05] VITALS: Ht 167.6 cm; Wt 69.3 kg
[2020-04-05 13:04] VITALS: BP 103/61
[2020-04-05 13:16] LABS: EOSINOPHILS % (AUTO) 6.6 % (0.0-3.0); HEMATOCRIT 34.1 % (42.0-52.0); HEMOGLOBIN 11.6 G/DL (14.2-18.0); LYMPHOCYTES % (AUTO) 24.9 % (20.0-45.0); MEAN CORPUSCULAR VOLUME 91 FL (80-99); MONOCYTES % (AUTO) 12.5 % (1.0-10.0); PLATELET COUNT 170 K/UL (150-450); RED BLOOD COUNT 3.76 M/UL (4.70-6.10); RED CELL DISTRIBUTION WIDTH 14.2 % (11.6-14.8); WHITE BLOOD COUNT 4.2 K/UL (4.8-10.8)
[2020-04-05 13:24] LABS: INR 1.2 (0.9-1.1)
[2020-04-05 13:31] LABS: CALCIUM 7.8 MG/DL (8.5-10.1); CREATININE 1.4 MG/DL (0.55-1.30); POTASSIUM 3.7 MMOL/L (3.5-5.1)
[2020-04-05 13:42] LABS: ALBUMIN 3.2 G/DL (3.4-5.0); ALBUMIN/GLOBULIN RATIO 0.7 (1.0-2.7); BILIRUBIN,TOTAL 0.8 MG/DL (0.2-1.0)
--- NOTE | 2020-04-05 14:15 | Diagnostic Imaging Report ---
EXAM: XR Chest, 1 View CLINICAL HISTORY: PAIN TECHNIQUE: Frontal view of the chest. COMPARISON: Chest radiograph on 02/07/2020 FINDINGS: Hardware: None. Lungs/pleura: Hyperinflation of the lungs. No focal consolidation. No pleural effusion or pneumothorax. Heart/mediastinum: Stable severe enlargement of the cardiac silhouette. Component of pericardial effusion is not excluded given globular appearance. Soft tissues: Unremarkable. Bones: No acute fracture. Upper abdomen: Normal. IMPRESSION: 1. Stable severe enlargement of the cardiac silhouette. Component of pericardial effusion is not excluded given globular appearance. 2. No focal consolidation.
[2020-04-05 14:31] LABS: APPEARANCE,URINE CLEAR; BILIRUBIN, URINE NEGATIVE (NEGATIVE); GLUCOSE, URINE (UA) NEGATIVE (NEGATIVE); KETONES,URINE NEGATIVE (NEGATIVE); LEUKOCYTE ESTERASE ,URINE NEGATIVE (NEGATIVE); NITRITE,URINE NEGATIVE (NEGATIVE); PH,URINE 5 (4.5-8.0); PROTEIN,URINE 2+ (NEGATIVE); UROBILINOGEN,URINE NORMAL MG/DL (0.0-1.0)
[2020-04-05 14:32] LABS: COLOR,URINE YELLOW
--- NOTE | 2020-04-05 14:37 | Emergency Room Report ---
History of Present Illness General Chief Complaint: Chest Pain Present Illness HPI 50-year-old male with history of alcohol abuse and CHF who was recently hospitalized at [facility] brought in by paramedics due to alcohol intoxication and complaining of chest pain. Patient is a poor historian and cannot specify when chest pain started. Patient has a history of CHF exacerbation. Last visited with him. Relief Salesperson told patient needs to stay sober for at least 3 months for any further evaluation procedure. Patient has blood serum alcohol level of 481. Denies drug use. (Juanita Muñoz) Allergies: Coded Allergies: NO KNOWN ALLERGIES (Unverified Allergy, Unknown, 07/21/18) COVID-19 Screening Contact w/high risk pt: No Experienced COVID-19 symptoms?: No COVID-19 Testing performed SLURRY CONTROL TENDER: No (Juanita Muñoz) Patient History Past Medical History: see triage record Past Surgical History: unable to obtain Pertinent Family History: unable to obtain Social History: Reports: alcohol use Reviewed Nursing Documentation: PMH: Agreed; PSxH: Agreed (Juanita Muñoz) Nursing Documentation-PMH Hx Cardiac Problems: Yes - chf Hx Hypertension: Yes Hx Diabetes: No Hx Cancer: No Hx Gastrointestinal Problems: No Hx Neurological Problems: No (Juanita Muñoz) Review of Systems All Other Systems: negative except mentioned in HPI (Juanita Muñoz) Physical Exam Vital Signs Date Time Temp Pulse Resp B/P (MAP) Pulse Ox O2 Delivery O2 Flow Rate FiO2 04/05/20 12:41 98.4 84 18 103/61 (75) 100 Room Air Sp02 EP Interpretation: reviewed, normal General Appearance: mild distress Head: normocephalic, atraumatic Eyes: bilateral eye normal inspection, bilateral eye PERRL ENT: hearing grossly normal, normal pharynx, no angioedema, normal voice Neck: full range of motion, supple/symm/no masses Respiratory: chest non-tender, lungs clear, normal breath sounds, speaking full sentences Cardiovascular #1: regular rate, rhythm, no edema, no murmur Cardiovascular #2: 2+ carotid (R), 2+ carotid (L), 2+ radial (R), 2+ dorsalis pedis (R), 2+ dorsalis pedis (L) Gastrointestinal: normal bowel sounds, non tender, soft, non-distended, no guarding, no rebound Rectal: deferred Genitourinary: no CVA tenderness Musculoskeletal: back normal, no calf tenderness Neurologic: alert, motor strength/tone normal, oriented x3, sensory intact, responsive, speech normal Psychiatric: judgement/insight normal, memory normal, mood/affect normal, no suicidal/homicidal ideation Skin: no rash Lymphatic: no adenopathy (Juanita Muñoz) Medical Decision Making PA Attestation All my diagnosis and treatment plans were reviewed ad discussed with my supervising physician Dr. Gillette (Juanita Muñoz) Diagnostic Impression: Primary Impression: CHF exacerbation Additional Impression: Alcohol intoxication ER Course 50-year-old male with history of alcohol abuse and CHF who was recently hospitalized at [facility] brought in by paramedics due to alcohol intoxication and complaining of chest pain. Patient is a poor historian and cannot specify when chest pain started. Patient has a history of CHF exacerbation. Last visited with him. Relief Salesperson told patient needs to stay sober for at least 3 months for any further evaluation procedure. Patient has blood serum alcohol level of 481. Denies drug use. Ddx considered but are not limited to: HI, Angina, COPD, GERD, Vital signs: are WNL, pt. is afebrile H&PE are most consistent with CHF exacerbation, alcohol intoxication ORDERS: EKG, Chest XR, cardiac labs ED INTERVENTIONS: NS bolus Patient was admitted with diagnosis of CHF exacerbation, alcohol intoxication to Dr. Oliveira under supervision of : Julia pt stable at time of admission (Juanita Muñoz) ER Course I personally examined the patient. The admitting physician was spoken to regarding the admission and was accepted for admission to telemetry. I agree with the above plan. (Alejo Schneider M.D.) EKG Diagnostic Results Rate: normal Rhythm: NSR ST Segments: no acute changes Other Impression No acute ST changes ASA given to the pt in ED: No (Juanita Muñoz) Chest X-Ray Diagnostic Results Chest X-Ray Diagnostic Results : Chest X-Ray Ordered: Yes # of Views/Limited/Complete: 1 View Indication: Other - Cardiomegaly EP Interpretation: Yes PA Xray: Interpretation reviewed, by supervising MD, and agrees with findings. Impression: Other - Cardiomegaly Electronically Signed by: Juanita Briones PA-C (Juanita Muñoz) Last Vital Signs Date Time Temp Pulse Resp B/P (MAP) Pulse Ox O2 Delivery O2 Flow Rate FiO2 04/05/20 13:04 98.4 87 18 103/61 100 Room Air (Juanita Muñoz) Disposition: ADMITTED INPATIENT Condition: Stable Referrals: [facility],REFERRING (PCP) Juanita Muñoz Apr 05, 2020 14:37 Alejo Schneider M.D. Apr 05, 2020 16:05
[2020-04-05] MEDS ORDERED: Ketorolac 30mg Inj IV ONE (15:00)
[2020-04-05 15:08] VITALS: BP 110/69
--- NOTE | 2020-04-05 17:00 | Cardiac Electrophysiology PN ---
Subjective Subjective [id number] Objective Last 24 Hour Vital Signs Date Time Temp Pulse Resp B/P (MAP) Pulse Ox O2 Delivery O2 Flow Rate FiO2 04/05/20 16:31 98.2 83 19 118/68 98 Nasal Cannula 3.0 04/05/20 15:08 98.0 90 17 110/69 98 Nasal Cannula 3.0 04/05/20 13:04 98.4 87 18 103/61 100 Room Air 04/05/20 13:04 84 18 Room Air 04/05/20 12:41 98.4 84 18 103/61 (75) 100 Room Air Laboratory Tests Test 04/05/20 12:57 04/05/20 14:08 White Blood Count 4.2 K/UL (4.8-10.8) L Red Blood Count 3.76 M/UL (4.70-6.10) L Hemoglobin 11.6 G/DL (14.2-18.0) L Hematocrit 34.1 % (42.0-52.0) L Mean Corpuscular Volume 91 FL (80-99) Mean Corpuscular Hemoglobin 31.0 PG (27.0-31.0) Mean Corpuscular Hemoglobin Concent 34.1 G/DL (32.0-36.0) Red Cell Distribution Width 14.2 % (11.6-14.8) Platelet Count 170 K/UL (150-450) Mean Platelet Volume 6.2 FL (6.5-10.1) L Neutrophils (%) (Auto) 53.0 % (45.0-75.0) Lymphocytes (%) (Auto) 24.9 % (20.0-45.0) Monocytes (%) (Auto) 12.5 % (1.0-10.0) H Eosinophils (%) (Auto) 6.6 % (0.0-3.0) H Basophils (%) (Auto) 3.0 % (0.0-2.0) H Prothrombin Time 12.9 SEC (9.30-11.50) H Prothromb Time International Ratio 1.2 (0.9-1.1) H Activated Partial Thromboplast Time 34 SEC (23-33) H Sodium Level 137 MMOL/L (136-145) Potassium Level 3.7 MMOL/L (3.5-5.1) Chloride Level 103 MMOL/L (98-107) Carbon Dioxide Level 19 MMOL/L (21-32) L Anion Gap 16 mmol/L (5-15) H Blood Urea Nitrogen 24 mg/dL (7-18) H Creatinine 1.4 MG/DL (0.55-1.30) H Estimat Glomerular Filtration Rate 53.4 mL/min (>60) Glucose Level 101 MG/DL (74-106) Calcium Level 7.8 MG/DL (8.5-10.1) L Total Bilirubin 0.8 MG/DL (0.2-1.0) Aspartate Amino Transf (AST/SGOT) 66 U/L (15-37) H Alanine Aminotransferase (ALT/SGPT) 36 U/L (12-78) Alkaline Phosphatase 130 U/L (46-116) H Troponin I 0.020 ng/mL (0.000-0.056) Pro-B-Type Natriuretic Peptide 1217 pg/mL (0-125) H Total Protein 7.7 G/DL (6.4-8.2) Albumin 3.2 G/DL (3.4-5.0) L Globulin 4.5 g/dL Albumin/Globulin Ratio 0.7 (1.0-2.7) L Lipase 188 U/L (73-393) Serum Alcohol 481 mg/dL Urine Color Yellow Urine Appearance Clear Urine pH 5 (4.5-8.0) Urine Specific [place] 1.010 (1.005-1.035) Urine Protein 2+ (NEGATIVE) H Urine Glucose (UA) Negative (NEGATIVE) Urine Ketones Negative (NEGATIVE) Urine Blood Negative (NEGATIVE) Urine Nitrite Negative (NEGATIVE) Urine Bilirubin Negative (NEGATIVE) Urine Urobilinogen Normal MG/DL (0.0-1.0) Urine Leukocyte Esterase Negative (NEGATIVE) Urine RBC 0 /HPF (0 - 0) Urine WBC 0-2 /HPF (0 - 0) Urine Squamous Epithelial Cells Occasional /LPF Urine Bacteria None /HPF (NONE) Urine Opiates Screen Negative (NEGATIVE) Urine Barbiturates Screen Negative (NEGATIVE) Phencyclidine (PCP) Screen Negative (NEGATIVE) Urine Amphetamines Screen Negative (NEGATIVE) Urine Benzodiazepines Screen Positive (NEGATIVE) H Urine Cocaine Screen Negative (NEGATIVE) Urine Marijuana (THC) Screen Negative (NEGATIVE) Microbiology Date/Time Source Procedure Growth Status 04/05/20 15:25 Nasopharynx SARS-CoV-2 RdRp Gene Assay - Final Complete Natanael Lou MD Apr 05, 2020 17:00
[2020-04-05] MEDS: chlordiazePOXIDE 25mg Cap ORAL SCH (18:09)
[2020-04-05] MEDS: traMADol 50mg tab ORAL PRN (18:13)
[2020-04-05 20:00] VITALS: BP 105/62
--- NOTE | 2020-04-05 21:45 | Consultation ---
DATE OF CONSULTATION: 04/05/2020 CARDIOLOGY CONSULTATION REFERRING PHYSICIAN: Kam Lynch M.D. REASON FOR CONSULTATION: Management of congestive heart failure. HISTORY OF PRESENT ILLNESS: The patient is a 50-year-old gentleman with history of severe alcoholic dilated cardiomyopathy, who was brought into [facility] for alcohol intoxication, complaining of chest pain. The patient is a poor historian, is unable to provide meaningful information. The patient has a history of severe cardiomyopathy due to alcohol. On the previous admission, I told him he needs to be sober for 3 months before consideration for defibrillator implantation. The patient, however, presented again with blood glucose of 481. The patient denies any substance use. REVIEW OF SYSTEMS: Negative other than what is mentioned in the history of present illness. PAST MEDICAL HISTORY: As mentioned above. FAMILY HISTORY: Noncontributory. SOCIAL HISTORY: He is homeless and continues to drink alcohol heavily. PHYSICAL EXAMINATION: VITAL SIGNS: Blood pressure of 118/68, pulse 83, respirations 18, and he is afebrile. HEAD AND NECK: Positive JVD. LUNGS: Decreased breath sounds. CARDIOVASCULAR: Regular S1 and S2 with no gallop. ABDOMEN: Soft. EXTREMITIES: 1+ pitting edema. LABORATORY AND DIAGNOSTIC DATA: Labs show white count of 4.2, hemoglobin of 11.7, hematocrit of 34.1, and platelet count of 170. Sodium 137, potassium 3.7, BUN of 24, creatinine 1.4. His troponin is negative. BNP is 1217. His echocardiogram on February 08, 2020 less than 2 months ago showed and ejection fraction of 10-15 percent. As well as moderate to severe mitral regurgitation. ASSESSMENT AND PLAN: 1. Severe diabetic cardiomyopathy, ejection fraction of 10-15% in this alcoholic patient. His echocardiogram in 07/2018 also showed EF of only 20%. Resume Coreg and Lasix. Watch the patient's renal function as his creatinine is 1.4. Echocardiogram will be repeated. 2. Complete left bundle-branch block. 3. Alcohol use. 4. Benzodiazepine use. Thank you very much, Dr. Lynch, for allowing me to participate in the care of this patient. Please do not hesitate to contact me for any questions regarding my evaluation. Natanael Lou M.D. DR: YESSY JOB#: [id number] CC:
--- NOTE | 2020-04-05 22:45 | History and Physical Report ---
DATE OF ADMISSION: 04/05/2020 HISTORY OF PRESENT ILLNESS: This is a 50-year-old male who came to the emergency room for having recurrent chest pain, associated shortness of breath and palpitation. The patient claims he has been still drinking almost every day and heavily. The patient denies any fever or chills. PAST MEDICAL HISTORY: Significant for coronary artery disease, CHF, hypertension, and history of alcohol abuse. MEDICATIONS: See the list. ALLERGIES: NKA. FAMILY HISTORY: Noncontributory. SOCIAL HISTORY: Positive for smoking and drinking. REVIEW OF SYSTEMS: Generalized weakness, tired, fatigued. Recurrent chest pain. PHYSICAL EXAMINATION: VITAL SIGNS: Blood pressure is 137/70, pulse 84, respirations 18 to 24. Temperature, no fever. SKIN: Slightly dry. HEENT: Mild JVD. CHEST: Bilateral few crackles and wheezing. CARDIOVASCULAR: Irregular rhythm. ABDOMEN: Soft. Positive bowel sounds. Nontender. EXTREMITIES: No edema. GENITOURINARY: Deferred. LABORATORY DATA: BNP is high. EKG, nonspecific ST and T-wave changes. First troponin is negative. ASSESSMENT: 1. Acute coronary syndrome. 2. CHF. 3. Hypertension. 4. History of alcohol abuse. 5. Coronary artery disease. PLAN: We will admit him on tele bed. and consider cardiology consult. Also add and check 2D echo. Rusty Lynch M.D. DR: JETT JOB#: [id number] CC:
[2020-04-06] VITALS: BP 105/69
[2020-04-06] MEDS: Nitroglycerin Subl 0.4mg tab SL PRN ×2 (02:49→02:59)
[2020-04-06 04:00] VITALS: BP 111/70
[2020-04-06] MEDS: traMADol 50mg tab ORAL PRN ×3 (04:30→18:44)
[2020-04-06 08:00] VITALS: BP 124/73
[2020-04-06] MEDS: Aspirin Baby 81mg ORAL SCH (08:33)
[2020-04-06] MEDS: Lisinopril 10mg tab ORAL SCH (08:33)
[2020-04-06] MEDS: Thiamine 100mg tab ORAL SCH (08:34)
[2020-04-06] MEDS: Digoxin 0.125mg tab ORAL SCH (08:34)
[2020-04-06] MEDS: Spironolactone 25mg tab ORAL SCH (08:35)
[2020-04-06] MEDS: chlordiazePOXIDE 25mg Cap ORAL SCH ×3 (08:35→17:43)
[2020-04-06 08:37] LABS: ANION GAP 13 mmol/L (5-15); BLOOD UREA NITROGEN 19 mg/dL (7-18); CALCIUM 7.4 MG/DL (8.5-10.1); CARBON DIOXIDE 21 MMOL/L (21-32); CHLORIDE 104 MMOL/L (98-107); POTASSIUM 3.9 MMOL/L (3.5-5.1); SODIUM 137 MMOL/L (136-145)
[2020-04-06 11:54] VITALS: BP 104/64
--- NOTE | 2020-04-06 11:54 | Consultation ---
Consult Note Consult Note HISTORY OF PRESENT ILLNESS: The patient is a 50-year-old gentleman with history of severe dilated cardiomyopathy, who was brought into [facility] for alcohol intoxication, complaining of chest pain. The patient is a poor historian, is unable to provide meaningful information. The patient has a history of severe cardiomyopathy due to alcohol. The patient denies any substance use. REVIEW OF SYSTEMS: Negative other than what is mentioned in the history of present illness. PAST MEDICAL HISTORY: As mentioned above. FAMILY HISTORY: Noncontributory. SOCIAL HISTORY: He is homeless and continues to drink alcohol heavily. PHYSICAL EXAMINATION: VITAL SIGNS: Blood pressure of 118/68, pulse 83, respirations 18, and he is afebrile. HEAD AND NECK: Positive JVD. LUNGS: Decreased breath sounds. CARDIOVASCULAR: Regular S1 and S2 with no gallop. ABDOMEN: Soft. EXTREMITIES: 1+ pitting edema. LABORATORY AND DIAGNOSTIC DATA: Labs show white count of 4.2, hemoglobin of 11.7, hematocrit of 34.1, and platelet count of 170. Sodium 137, potassium 3.7, BUN of 24, creatinine 1.4. His troponin is negative. BNP is 1217. His echocardiogram on February 08, 2020 less than 2 months ago showed and ejection fraction of 10-15 percent. As well as moderate to severe mitral regurgitation. ASSESSMENT AND PLAN: 1. Severe cardiomyopathy, ejection fraction of 10-15% in this alcoholic patient. His echocardiogram in 07/2018 also showed EF of only 20%. Resume Coreg and Lasix. 2. Complete left bundle-branch block. 3. Alcohol use. 4. Benzodiazepine use. Currently saturating well on low flow O2 Will follow Baljinder Shi M.D. Baljinder Shi MD Apr 06, 2020 11:54
--- NOTE | 2020-04-06 15:22 | Cardiac Electrophysiology PN ---
Assessment/Plan Assessment/Plan 1. Severe dilated alcoholic cardiomyopathy, ejection fraction of 10 % by Echo today His Echocardiogram in 07/2018 also showed EF of only 20%. Connect Coreg, Lisinopril and Lasix. Add Aldactone 25 mg daily 2. Complete left bundle-branch block. 3. Alcohol use. 4. Benzodiazepine use. Subjective Subjective Alert in NAD. Diuresing well.In SR with LBBB. Objective Last 24 Hour Vital Signs Date Time Temp Pulse Resp B/P (MAP) Pulse Ox O2 Delivery O2 Flow Rate FiO2 04/06/20 11:54 97.7 64 18 104/64 (77) 97 04/06/20 11:36 60 04/06/20 09:00 Nasal Cannula 2.0 04/06/20 08:35 78 124/73 04/06/20 08:34 78 04/06/20 08:33 124/73 04/06/20 08:00 96.9 78 18 124/73 (90) 97 04/06/20 07:52 72 04/06/20 04:00 97.8 77 20 111/70 (84) 98 04/06/20 04:00 79 04/06/20 03:06 76 111/72 04/06/20 02:59 111/72 04/06/20 02:49 106/78 04/06/20 00:00 96.4 84 20 105/69 (81) 94 04/06/20 00:00 80 04/05/20 21:00 Nasal Cannula 2.0 04/05/20 20:00 96.4 84 20 105/62 (76) 94 04/05/20 20:00 65 04/05/20 18:23 2.0 04/05/20 17:00 67 04/05/20 16:58 Nasal Cannula 2.0 04/05/20 16:31 98.2 83 19 118/68 98 Nasal Cannula 3.0 Intake and Output 04/05/20 04/06/20 19:00 07:00 Intake Total 720 ml 250 ml Output Total 800 ml Balance 720 ml -550 ml Intake Oral 120 ml 250 ml IV Total 600 ml Output Urine Total 800 ml # Voids 2 3 # Bowel Movements 2 Laboratory Tests Test 04/06/20 06:15 Sodium Level 137 MMOL/L (136-145) Potassium Level 3.9 MMOL/L (3.5-5.1) Chloride Level 104 MMOL/L (98-107) Carbon Dioxide Level 21 MMOL/L (21-32) Anion Gap 13 mmol/L (5-15) Blood Urea Nitrogen 19 mg/dL (7-18) H Creatinine 1.0 MG/DL (0.55-1.30) Estimat Glomerular Filtration Rate > 60 mL/min (>60) Glucose Level 86 MG/DL (74-106) Calcium Level 7.4 MG/DL (8.5-10.1) L Troponin I 0.027 ng/mL (0.000-0.056) Pro-B-Type Natriuretic Peptide 2278 pg/mL (0-125) H Microbiology Date/Time Source Procedure Growth Status 04/05/20 15:25 Nasopharynx SARS-CoV-2 RdRp Gene Assay - Final Complete Objective HEAD AND NECK: Positive JVD. LUNGS: Decreased breath sounds. CARDIOVASCULAR: Regular S1 and S2 with no gallop. ABDOMEN: Soft. EXTREMITIES: 1+ pitting edema. Natanael Lou MD Apr 06, 2020 15:22
[2020-04-06 16:00] VITALS: BP 101/65
--- NOTE | 2020-04-06 17:41 | General Progress Note ---
Subjective Date patient seen: Apr 06, 2020 Allergies: Coded Allergies: NO KNOWN ALLERGIES (Unverified Allergy, Unknown, 07/21/18) Subjective sob rec chest pain tremors Objective Last 24 Hour Vital Signs Date Time Temp Pulse Resp B/P (MAP) Pulse Ox O2 Delivery O2 Flow Rate FiO2 04/06/20 16:00 98.2 75 20 101/65 (77) 99 04/06/20 15:36 58 04/06/20 11:54 97.7 64 18 104/64 (77) 97 04/06/20 11:36 60 04/06/20 09:00 Nasal Cannula 2.0 04/06/20 08:35 78 124/73 04/06/20 08:34 78 04/06/20 08:33 124/73 04/06/20 08:00 96.9 78 18 124/73 (90) 97 04/06/20 07:52 72 04/06/20 04:00 97.8 77 20 111/70 (84) 98 04/06/20 04:00 79 04/06/20 03:06 76 111/72 04/06/20 02:59 111/72 04/06/20 02:49 106/78 04/06/20 00:00 96.4 84 20 105/69 (81) 94 04/06/20 00:00 80 04/05/20 21:00 Nasal Cannula 2.0 04/05/20 20:00 96.4 84 20 105/62 (76) 94 04/05/20 20:00 65 04/05/20 18:23 2.0 Intake and Output 04/05/20 04/06/20 19:00 07:00 Intake Total 720 ml 250 ml Output Total 800 ml Balance 720 ml -550 ml Intake Oral 120 ml 250 ml IV Total 600 ml Output Urine Total 800 ml # Voids 2 3 # Bowel Movements 2 Laboratory Tests 04/06/20 06:15: Sodium Level 137, Potassium Level 3.9, Chloride Level 104, Carbon Dioxide Level 21, Anion Gap 13, Blood Urea Nitrogen 19H, Creatinine 1.0, Estimat Glomerular Filtration Rate > 60, Glucose Level 86, Calcium Level 7.4L, Troponin I 0.027, Pr o-B-Type Natriuretic Peptide 2278H Height (Feet): 5 Height (Inches): 6.00 Weight (Pounds): 154 General Appearance: alert EENT: PERRL/EOMI, normal ENT inspection Neck: non-tender Cardiovascular: regular rhythm Respiratory/Chest: inspiratory wheezing Abdomen: non tender, soft Extremities: non-tender Edema: mild edema Neurologic: irish moss gatherer II-XII grossly normal Skin: warm/dry Assessment/Plan Assessment/Plan: acs chf htn hx etoh abusedcon asa check 2 d echo cardio on case cont thiamine, librium recom quit etoh fluid and salt restriction Kam Lynch MD Apr 06, 2020 17:41
--- NOTE | 2020-04-06 19:30 | Cardiology Report ---
APPROVED REPORT EKG Measurement Heart [id number] [place] 184P71 [id number] <Conclusion> Normal sinus rhythm Right atrial enlargement Left bundle branch block Abnormal ECG
--- NOTE | 2020-04-06 19:32 | Cardiology Report ---
APPROVED REPORT EKG Measurement Heart [id number] [place] [id number] [id number] <Conclusion> Normal sinus rhythm Possible Left atrial enlargement Left bundle branch block Abnormal ECG
[2020-04-06 20:00] VITALS: BP 117/73
[2020-04-06] MEDS: Morphine Sulfate 2mg/ml Inj(IV/IM USE ONLY) IVP PRN (22:31)
[2020-04-07] VITALS: BP 120/71
[2020-04-07 04:00] VITALS: BP 115/75
[2020-04-07 07:48] VITALS: BP 107/64
--- NOTE | 2020-04-07 08:15 | Cardiology Report ---
APPROVED REPORT EXAM: Two-dimensional and M-mode echocardiogram with Doppler and color Doppler. INDICATION Congestive Heart Failure M-Mode DIMENSIONS IVSd0.6 (0.7-1.1cm)Left Atrium (MM)6.5 (1.6-4.0cm) LVDd8.5 (3.5-5.6cm)Aortic Root3.5 (2.0-3.7cm) PWd0.8 (0.7-1.1cm)Aortic Cusp Exc.2.1 (1.5-2.0cm) IVSs0.7 cmEPSS3.1 (>1.0cm) LVDs8.1 (2.5-4.0cm) PWs0.9 cm <Conclusion> Severe global left ventricular hypokinesis with septal and apical-septal dyskinesis. Severe left ventricular enlargement. Cannot exclude cardiomyopathy. Left ventricular ejection fraction estimated to be 15 %. No evidence of left ventricular hypertrophy. No evidence of pericardial effusion. Severe left atrial enlargement. Mild right atrial and right ventricular enlargement. Mild focal aortic valve sclerosis with adequate cusp excursion. Mildly thickened mitral valve leaflets with normal excursion. Mild mitral annulus and aortic root calcification. Normal pulmonic valve structure. Normal tricuspid valve structure. IVC dilated at 2.2 cm without physiological collapse, suggestive of increased RA pressure. A color flow and spectral Doppler study was performed and revealed: No aortic regurgitation. Severe mitral regurgitation. Mitral inflow indicates increased left atrial pressure, suggestive restrictive pattern (Grade III). Moderate tricuspid regurgitation. Tricuspid systolic velocities suggests peak right ventricular systolic pressure of 70 mmHg, consistent with severe pulmonary hypertension.
--- NOTE | 2020-04-07 08:59 | Pulmonology Progress Note ---
Subjective Interval Events: None new Constitutional: Reports: no symptoms HEENT: Repors: no symptoms Respiratory: Reports: no symptoms Cardiovascular: Reports: no symptoms Allergies: Coded Allergies: NO KNOWN ALLERGIES (Unverified Allergy, Unknown, 07/21/18) Objective Last 24 Hour Vital Signs Date Time Temp Pulse Resp B/P (MAP) Pulse Ox O2 Delivery O2 Flow Rate FiO2 04/07/20 07:48 97.5 75 18 107/64 (78) 93 04/07/20 04:00 98.5 62 20 115/75 (88) 100 04/07/20 04:00 62 04/07/20 00:00 75 04/07/20 00:00 98.2 57 18 120/71 (87) 100 04/06/20 21:00 Nasal Cannula 2.0 04/06/20 20:50 61 117/73 04/06/20 20:00 69 04/06/20 20:00 97.9 61 20 117/73 (88) 100 04/06/20 18:28 2.0 04/06/20 16:00 98.2 75 20 101/65 (77) 99 04/06/20 15:36 58 04/06/20 11:54 97.7 64 18 104/64 (77) 97 04/06/20 11:36 60 04/06/20 09:00 Nasal Cannula 2.0 Intake and Output 04/06/20 04/07/20 19:00 07:00 Intake Total 240 ml 500 ml Output Total 1650 ml 850 ml Balance -1410 ml -350 ml Intake Oral 240 ml 500 ml Output Urine Total 1650 ml 850 ml # Bowel Movements 1 General Appearance: no acute distress HEENT: normocephalic Respiratory: chest wall non-tender, lungs clear Cardiovascular: normal peripheral pulses Abdomen: normal bowel sounds Microbiology Date/Time Source Procedure Growth Status 04/05/20 15:25 Nasopharynx SARS-CoV-2 RdRp Gene Assay - Final Complete Current Medications Medications (Trade) Dose Ordered Sig/Tiara Route PRN Reason Start Time Stop Time Status Last Admin Dose Admin Aspirin (ASA) 81 mg DAILY ORAL 04/06/20 09:00 05/21/20 08:59 04/06/20 08:33 Atorvastatin Calcium (Lipitor) 10 mg BEDTIME ORAL 04/05/20 21:00 07/04/20 20:59 04/06/20 20:49 Carvedilol (Coreg) 3.125 mg EVERY 12 HOURS ORAL 04/05/20 21:00 05/05/20 20:59 04/06/20 20:50 Chlordiazepoxide (Librium) 25 mg TID ORAL 04/05/20 18:00 04/12/20 17:59 04/06/20 17:43 Digoxin (Lanoxin) 0.125 mg DAILY ORAL 04/06/20 09:00 07/05/20 08:59 04/06/20 08:34 Furosemide (Lasix) 40 mg EVERY 12 HOURS IV 04/05/20 21:00 05/05/20 20:59 04/06/20 20:49 Lisinopril (ZestriL) 10 mg DAILY ORAL 04/06/20 09:00 05/06/20 08:59 04/06/20 08:33 Morphine Sulfate (Morphine Sulfate) 1 mg Q8HR PRN IVP Moderate Pain (Pain Scale 4-6) 04/06/20 22:15 04/13/20 22:14 04/06/20 22:31 Nitroglycerin (Ntg) 0.4 mg Q5M PRN SL Prn Chest Pain 04/05/20 17:15 05/05/20 17:14 04/06/20 02:59 Ondansetron HCl (Zofran) 4 mg Q6H PRN IVP Nausea & Vomiting 04/06/20 22:15 05/06/20 22:14 04/06/20 22:31 Spironolactone (Aldactone) 25 mg DAILY ORAL 04/06/20 09:00 05/06/20 08:59 04/06/20 08:35 Thiamine HCl (Vitamin B1) 100 mg DAILY ORAL 04/06/20 09:00 05/06/20 08:59 04/06/20 08:34 Tramadol HCl (Ultram) 50 mg Q4H PRN ORAL For Pain 04/05/20 18:00 04/12/20 17:59 04/06/20 18:44 Assessment/Plan Assessment/Plan ASSESSMENT AND PLAN: 1. Severe cardiomyopathy, ejection fraction of 10-15% in this alcoholic patient. His echocardiogram in 07/2018 also showed EF of only 20%. Resumed Coreg and Lasix. 2. Complete left bundle-branch block. 3. Alcohol use. 4. Benzodiazepine use. Currently saturating well on low flow O2 Will follow Baljinder Shi M.D. Baljinder Shi MD Apr 07, 2020 08:59
[2020-04-07] MEDS: Lisinopril 10mg tab ORAL SCH (09:00)
[2020-04-07] MEDS: Aspirin Baby 81mg ORAL SCH (09:09)
[2020-04-07] MEDS: Thiamine 100mg tab ORAL SCH (09:09)
[2020-04-07] MEDS: Digoxin 0.125mg tab ORAL SCH (09:10)
[2020-04-07] MEDS: chlordiazePOXIDE 25mg Cap ORAL SCH ×3 (09:10→17:14)
[2020-04-07] MEDS: Spironolactone 25mg tab ORAL SCH (09:11)
[2020-04-07 12:00] VITALS: BP 100/59
--- NOTE | 2020-04-07 13:12 | Cardiac Electrophysiology PN ---
Assessment/Plan Assessment/Plan 1. Severe dilated alcoholic cardiomyopathy, ejection fraction of 10 % by Echo today His Echocardiogram in 07/2018 also showed EF of only 20%. Connect Coreg, Lisinopril and Lasix and Aldactone 25 mg daily Decrease Lasix to 40 iv daily 2. Complete left bundle-branch block. 3. Alcohol use. 4. Benzodiazepine use. Subjective Subjective Alert in NAD. Diuresing well.In SR with LBBB. Objective Last 24 Hour Vital Signs Date Time Temp Pulse Resp B/P (MAP) Pulse Ox O2 Delivery O2 Flow Rate FiO2 04/07/20 12:00 98.2 64 18 100/59 (73) 95 04/07/20 11:42 63 04/07/20 09:10 75 04/07/20 09:09 75 107/64 04/07/20 09:00 Nasal Cannula 2.0 04/07/20 09:00 107/64 04/07/20 07:48 97.5 75 18 107/64 (78) 93 04/07/20 07:46 74 04/07/20 04:00 98.5 62 20 115/75 (88) 100 04/07/20 04:00 62 04/07/20 00:00 75 04/07/20 00:00 98.2 57 18 120/71 (87) 100 04/06/20 21:00 Nasal Cannula 2.0 04/06/20 20:50 61 117/73 04/06/20 20:00 69 04/06/20 20:00 97.9 61 20 117/73 (88) 100 04/06/20 18:28 2.0 04/06/20 16:00 98.2 75 20 101/65 (77) 99 04/06/20 15:36 58 Intake and Output 04/06/20 04/07/20 19:00 07:00 Intake Total 240 ml 500 ml Output Total 1650 ml 850 ml Balance -1410 ml -350 ml Intake Oral 240 ml 500 ml Output Urine Total 1650 ml 850 ml # Bowel Movements 1 Microbiology Date/Time Source Procedure Growth Status 04/05/20 15:25 Nasopharynx SARS-CoV-2 RdRp Gene Assay - Final Complete Objective HEAD AND NECK: Positive JVD. LUNGS: Decreased breath sounds. CARDIOVASCULAR: Regular S1 and S2 with no gallop. ABDOMEN: Soft. EXTREMITIES: 1+ pitting edema. Natanael Lou MD Apr 07, 2020 13:12
--- NOTE | 2020-04-07 15:54 | General Progress Note ---
Subjective Allergies: Coded Allergies: NO KNOWN ALLERGIES (Unverified Allergy, Unknown, 07/21/18) Subjective sob rec chest pain resolved tremors improving headche resolved Objective Last 24 Hour Vital Signs Date Time Temp Pulse Resp B/P (MAP) Pulse Ox O2 Delivery O2 Flow Rate FiO2 04/07/20 12:00 98.2 64 18 100/59 (73) 95 04/07/20 11:42 63 04/07/20 09:10 75 04/07/20 09:09 75 107/64 04/07/20 09:00 Nasal Cannula 2.0 04/07/20 09:00 107/64 04/07/20 07:48 97.5 75 18 107/64 (78) 93 04/07/20 07:46 74 04/07/20 04:00 98.5 62 20 115/75 (88) 100 04/07/20 04:00 62 04/07/20 00:00 75 04/07/20 00:00 98.2 57 18 120/71 (87) 100 04/06/20 21:00 Nasal Cannula 2.0 04/06/20 20:50 61 117/73 04/06/20 20:00 69 04/06/20 20:00 97.9 61 20 117/73 (88) 100 04/06/20 18:28 2.0 04/06/20 16:00 98.2 75 20 101/65 (77) 99 Intake and Output 04/06/20 04/07/20 19:00 07:00 Intake Total 240 ml 500 ml Output Total 1650 ml 850 ml Balance -1410 ml -350 ml Intake Oral 240 ml 500 ml Output Urine Total 1650 ml 850 ml # Bowel Movements 1 Height (Feet): 5 Height (Inches): 6.00 Weight (Pounds): 154 General Appearance: no apparent distress EENT: PERRL/EOMI, normal ENT inspection Neck: supple Cardiovascular: regular rhythm Respiratory/Chest: inspiratory wheezing Abdomen: non tender, soft Extremities: normal range of motion, non-tender Skin: warm/dry Assessment/Plan Assessment/Plan: acs chf/ cm ef 10% htn hx etoh abusedcon asa check 2 d echo ef 10% cont diuresis rpt bnp cardio on case cont thiamine, librium recom quit etoh fluid and salt restriction Kam Lynch MD Apr 07, 2020 15:54
[2020-04-07 15:56] VITALS: BP 98/50
[2020-04-07] MEDS ORDERED: DIGOXIN125 MCG ORAL (19:52)
[2020-04-07 20:00] VITALS: BP 98/51
[2020-04-07] MEDS: Morphine Sulfate 2mg/ml Inj(IV/IM USE ONLY) IVP PRN (23:40)
[2020-04-08] VITALS: BP 88/46
--- NOTE | 2020-04-08 00:21 | Psych Consult Progress Note ---
Psychiatry Progress Note Psychiatry Progress Note Medications Current Medications Medications (Trade) Dose Ordered Sig/Tiara Route PRN Reason Start Time Stop Time Status Last Admin Dose Admin Aspirin (ASA) 81 mg DAILY ORAL 04/06/20 09:00 05/21/20 08:59 04/07/20 09:09 Atorvastatin Calcium (Lipitor) 10 mg BEDTIME ORAL 04/05/20 21:00 07/04/20 20:59 04/07/20 20:24 Carvedilol (Coreg) 3.125 mg EVERY 12 HOURS ORAL 04/05/20 21:00 05/05/20 20:59 04/07/20 20:24 Chlordiazepoxide (Librium) 25 mg TID ORAL 04/05/20 18:00 04/12/20 17:59 04/07/20 17:14 Digoxin (Lanoxin) 0.125 mg DAILY ORAL 04/06/20 09:00 07/05/20 08:59 04/07/20 09:10 Furosemide (Lasix) 40 mg DAILY IV 04/08/20 09:00 05/05/20 20:59 Lisinopril (ZestriL) 10 mg DAILY ORAL 04/06/20 09:00 05/06/20 08:59 04/06/20 08:33 Morphine Sulfate (Morphine Sulfate) 1 mg Q8HR PRN IVP Moderate Pain (Pain Scale 4-6) 04/06/20 22:15 04/13/20 22:14 04/07/20 23:40 Nitroglycerin (Ntg) 0.4 mg Q5M PRN SL Prn Chest Pain 04/05/20 17:15 05/05/20 17:14 04/06/20 02:59 Ondansetron HCl (Zofran) 4 mg Q6H PRN IVP Nausea & Vomiting 04/06/20 22:15 05/06/20 22:14 04/06/20 22:31 Spironolactone (Aldactone) 25 mg DAILY ORAL 04/06/20 09:00 05/06/20 08:59 04/07/20 09:11 Thiamine HCl (Vitamin B1) 100 mg DAILY ORAL 04/06/20 09:00 05/06/20 08:59 04/07/20 09:09 Tramadol HCl (Ultram) 50 mg Q4H PRN ORAL For Pain 04/05/20 18:00 04/12/20 17:59 04/06/20 18:44 Allergies: Coded Allergies: NO KNOWN ALLERGIES (Unverified Allergy, Unknown, 07/21/18) Objective Data Height (Feet): 5 Height (Inches): 6.00 Weight (Pounds): 154 General Appearance: no apparent distress Denisse Stokes MD Apr 08, 2020 00:21
[2020-04-08 01:00] VITALS: BP 95/55
[2020-04-08] MEDS: traMADol 50mg tab ORAL PRN (01:07)
[2020-04-08 04:00] VITALS: BP 95/56
[2020-04-08 07:21] LABS: ANION GAP 3 mmol/L (5-15); BLOOD UREA NITROGEN 22 mg/dL (7-18); CALCIUM 7.9 MG/DL (8.5-10.1); CARBON DIOXIDE 31 MMOL/L (21-32); CHLORIDE 97 MMOL/L (98-107); CREATININE 1.1 MG/DL (0.55-1.30); POTASSIUM 4.9 MMOL/L (3.5-5.1); SODIUM 130 MMOL/L (136-145)
[2020-04-08 08:00] VITALS: BP 92/50
[2020-04-08] MEDS: Lisinopril 10mg tab ORAL SCH (08:50)
[2020-04-08] MEDS: chlordiazePOXIDE 25mg Cap ORAL SCH ×2 (08:51→13:00)
[2020-04-08] MEDS: Thiamine 100mg tab ORAL SCH (08:51)
[2020-04-08] MEDS: Digoxin 0.125mg tab ORAL SCH (08:52)
[2020-04-08] MEDS: Spironolactone 25mg tab ORAL SCH (08:52)
[2020-04-08] MEDS: Aspirin Baby 81mg ORAL SCH (08:52)
--- NOTE | 2020-04-08 09:22 | Pulmonology Progress Note ---
Subjective Interval Events: None new Constitutional: Reports: no symptoms HEENT: Repors: no symptoms Respiratory: Reports: no symptoms Cardiovascular: Reports: no symptoms Allergies: Coded Allergies: NO KNOWN ALLERGIES (Unverified Allergy, Unknown, 07/21/18) Objective Last 24 Hour Vital Signs Date Time Temp Pulse Resp B/P (MAP) Pulse Ox O2 Delivery O2 Flow Rate FiO2 04/08/20 08:52 78 04/08/20 08:50 92/50 04/08/20 08:50 78 92/50 04/08/20 08:31 Room Air 04/08/20 08:00 96.3 78 19 92/50 (64) 92 04/08/20 04:00 98.2 69 19 95/56 (69) 91 04/08/20 04:00 71 04/08/20 01:00 98.5 75 18 95/55 (68) 93 04/08/20 00:00 73 04/08/20 00:00 98.8 72 16 88/46 (60) 92 04/07/20 21:00 Room Air 04/07/20 20:24 70 102/51 04/07/20 20:00 98.8 70 16 98/51 (67) 93 04/07/20 20:00 70 04/07/20 18:22 2.0 04/07/20 15:56 97.9 64 18 98/50 (66) 96 04/07/20 15:12 63 04/07/20 12:00 98.2 64 18 100/59 (73) 95 04/07/20 11:42 63 Intake and Output 04/07/20 04/08/20 19:00 07:00 Intake Total 730 ml 600 ml Balance 730 ml 600 ml Intake Oral 730 ml 600 ml # Voids 5 3 # Bowel Movements 1 General Appearance: no acute distress HEENT: normocephalic Respiratory: chest wall non-tender, lungs clear Cardiovascular: normal peripheral pulses Abdomen: normal bowel sounds Microbiology Date/Time Source Procedure Growth Status 04/05/20 15:25 Nasopharynx SARS-CoV-2 RdRp Gene Assay - Final Complete Laboratory Tests 04/08/20 05:35: Sodium Level 130L, Potassium Level 4.9, Chloride Level 97L, Carbon Dioxide Level 31, Anion Gap 3L, Blood Urea Nitrogen 22H, Creatinine 1.1, Estimat Glomerular Filtration Rate > 60, Glucose Level 81, Calcium Level 7.9L, Pro-B-Type Natriuretic Peptide 2434H, Digoxin Level 0.5 Current Medications Medications (Trade) Dose Ordered Sig/Tiara Route PRN Reason Start Time Stop Time Status Last Admin Dose Admin Aspirin (ASA) 81 mg DAILY ORAL 04/06/20 09:00 05/21/20 08:59 04/08/20 08:52 Atorvastatin Calcium (Lipitor) 10 mg BEDTIME ORAL 04/05/20 21:00 07/04/20 20:59 04/07/20 20:24 Carvedilol (Coreg) 3.125 mg EVERY 12 HOURS ORAL 04/05/20 21:00 05/05/20 20:59 04/07/20 20:24 Chlordiazepoxide (Librium) 25 mg TID ORAL 04/05/20 18:00 04/12/20 17:59 04/08/20 08:51 Digoxin (Lanoxin) 0.125 mg DAILY ORAL 04/06/20 09:00 07/05/20 08:59 04/08/20 08:52 Furosemide (Lasix) 40 mg DAILY IV 04/08/20 09:00 05/05/20 20:59 04/08/20 08:52 Lisinopril (ZestriL) 10 mg DAILY ORAL 04/06/20 09:00 05/06/20 08:59 04/06/20 08:33 Morphine Sulfate (Morphine Sulfate) 1 mg Q8HR PRN IVP Moderate Pain (Pain Scale 4-6) 04/06/20 22:15 04/13/20 22:14 04/07/20 23:40 Nitroglycerin (Ntg) 0.4 mg Q5M PRN SL Prn Chest Pain 04/05/20 17:15 05/05/20 17:14 04/06/20 02:59 Ondansetron HCl (Zofran) 4 mg Q6H PRN IVP Nausea & Vomiting 04/06/20 22:15 05/06/20 22:14 04/06/20 22:31 Spironolactone (Aldactone) 25 mg DAILY ORAL 04/06/20 09:00 05/06/20 08:59 04/08/20 08:52 Thiamine HCl (Vitamin B1) 100 mg DAILY ORAL 04/06/20 09:00 05/06/20 08:59 04/08/20 08:51 Tramadol HCl (Ultram) 50 mg Q4H PRN ORAL For Pain 04/05/20 18:00 04/12/20 17:59 04/08/20 01:07 Assessment/Plan Assessment/Plan ASSESSMENT AND PLAN: 1. Severe cardiomyopathy, ejection fraction of 10-15% 2. Complete left bundle-branch block. 3. Alcohol use. 4. Benzodiazepine use. Currently saturating well on RA DC planning Will follow Miesha Yee Omar Syed MD Apr 08, 2020 09:22
--- NOTE | 2020-04-08 11:47 | Cardiac Electrophysiology PN ---
Assessment/Plan Assessment/Plan 1. Severe dilated alcoholic cardiomyopathy, ejection fraction of 10 % by Echo today His Echocardiogram in 07/2018 also showed EF of only 20%. Connect Coreg, Lisinopril and Lasix and Aldactone 25 mg daily Change Lasix to 40 po daily 2. Complete left bundle-branch block. 3. Alcohol use. 4. Benzodiazepine use. DC pending Subjective Subjective Alert in NAD. Diuresing well.In SR with LBBB.DC in progress Objective Last 24 Hour Vital Signs Date Time Temp Pulse Resp B/P (MAP) Pulse Ox O2 Delivery O2 Flow Rate FiO2 04/08/20 08:52 78 04/08/20 08:50 92/50 04/08/20 08:50 78 92/50 04/08/20 08:31 Room Air 04/08/20 08:00 74 04/08/20 08:00 96.3 78 19 92/50 (64) 92 04/08/20 04:00 98.2 69 19 95/56 (69) 91 04/08/20 04:00 71 04/08/20 01:00 98.5 75 18 95/55 (68) 93 04/08/20 00:00 73 04/08/20 00:00 98.8 72 16 88/46 (60) 92 04/07/20 21:00 Room Air 04/07/20 20:24 70 102/51 04/07/20 20:00 98.8 70 16 98/51 (67) 93 04/07/20 20:00 70 04/07/20 18:22 2.0 04/07/20 15:56 97.9 64 18 98/50 (66) 96 04/07/20 15:12 63 04/07/20 12:00 98.2 64 18 100/59 (73) 95 Intake and Output 04/07/20 04/08/20 19:00 07:00 Intake Total 730 ml 600 ml Balance 730 ml 600 ml Intake Oral 730 ml 600 ml # Voids 5 3 # Bowel Movements 1 Laboratory Tests Test 04/08/20 05:35 Sodium Level 130 MMOL/L (136-145) L Potassium Level 4.9 MMOL/L (3.5-5.1) Chloride Level 97 MMOL/L (98-107) L Carbon Dioxide Level 31 MMOL/L (21-32) Anion Gap 3 mmol/L (5-15) L Blood Urea Nitrogen 22 mg/dL (7-18) H Creatinine 1.1 MG/DL (0.55-1.30) Estimat Glomerular Filtration Rate > 60 mL/min (>60) Glucose Level 81 MG/DL (74-106) Calcium Level 7.9 MG/DL (8.5-10.1) L Pro-B-Type Natriuretic Peptide 2434 pg/mL (0-125) H Digoxin Level 0.5 NG/ML (0.5-2.0) Microbiology Date/Time Source Procedure Growth Status 04/05/20 15:25 Nasopharynx SARS-CoV-2 RdRp Gene Assay - Final Complete Objective HEAD AND NECK: Positive JVD. LUNGS: Decreased breath sounds. CARDIOVASCULAR: Regular S1 and S2 with no gallop. ABDOMEN: Soft. EXTREMITIES: 1+ pitting edema. Natanael Lou MD Apr 08, 2020 11:47
[2020-04-08 12:00] VITALS: BP 100/55
--- NOTE | 2020-04-08 19:45 | Coder Physician Query ---
Clarification is required for compliance, coding accuracy, and to reflect severity of illness for this patient Dear Dr. Kam Lynch Date: 04/08/20 Bilingual Manager/CDS Name: Prince Boo ACS, CHF/CM EF 10%, HTN documented in progress notes on 04/07/20 Severe dilated alcoholic cardiomyopathy, ejection fraction of 10 % by Echo today. His Echocardiogram in 07/2018 also showed EF of only 20% (Cardiology progress note on 04/07/20) Labs: Pro-BNP 1217, 2278 Medications: Coreg, Lisinopril and Lasix and Aldactone 25 mg daily, Lasix 40 iv daily 2D Echocardiogram: Left ventricular ejection fraction estimated to be 15%. Please Clarify: Acuity [ ] Acute [ ] Chronic [ ] Acute on Chronic Type [ ] Systolic [ ] Diastolic [ ] Systolic & Diastolic (Combined) [ ] Other: Present on Admission: [ ] Yes [ ] No [ ] Clinically Undetermined Physician signature Date Please also document in your Progress Notes and/or Discharge Summary and indicate if the condition was present on admission. MTDD
[2020-04-09] MEDS ORDERED: Furosemide 40mg tab ORAL SCH (09:00)
--- NOTE | 2020-04-10 13:24 | Discharge Summary ---
Discharge Summary Discharge Summary _ DATE OF ADMISSION: 04/05/2020 DATE OF DISCHARGE: 04/08/2020 Patient left AGAINST MEDICAL ADVICE REASON FOR ADMISSION: 50 years old male with past medical history of alcohol abuse, congestive heart failure , who recently hospitalized in this hospital , presented by paramedics due to alcohol intoxication , complaining of chest pain. Patient at that time was poor historian and unable to provide information when chest pain started. Serum alcohol level was 481. Urine toxicology screen was positive for benzodiazepine. Laboratory work-up revealed mild leukopenia WBC 4.2, hemoglobin 11.6 ,platelet count stable 170. Troponin negative , proBNP 1217. EKG revealed normal sinus rhythm, with right atrial enlargement and left bundle branch block. Stable electrolytes. BUN 24, creatinine 1.4. Urinalysis revealed no evidence of urinary tract infection. Chest x-ray revealed severe enlargement of the cardiac silhouette. No focal consolidation. 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 Mendenhall pulmonary Dr. Shi psychiatrist [facility]SE: Patient admitted to telemetry floor. Serial troponin were negative. EKG revealed no acute ischemic changes . Patient was ruled out for acute myocardial infarction. Echocardiogram demonstrated severe global left ventricular hypokinesis with septal and apico-septal dyskinesis. Left ventricular ejection fraction estimated to be 15%. No evidence of left ventricular hypertrophy. Severe mitral regurgitation. Increased left atrial pressure suggestive of restrictive pattern , grade 3. Moderate tricuspid regurgitation. Right ventricular systolic pressure of 70 , consistent with severe pulmonary hypertension. Guideline directed medical therapy for congestive heart failure provided with beta-abril, MISAEL inhibitor, and diuretics: Lasix and Aldactone. Volumes were are closely monitored. Antiplatelet therapy with aspirin and statin continued. Supplemental oxygen provided and titrated to keep pulse oximetry above 90%. Pulmonary toilet was on board as needed. Patient provided with thiamine and folate. On 04/08 patient decided to leave AGAINST MEDICAL ADVICE. The risks and consequences of signing AGAINST MEDICAL ADVICE were discussed with patient in detail. Patient verbalized understanding, nevertheless signed AMA form and left. FINAL DIAGNOSES: Alcohol intoxication CHF systolic and diastolic Severe dilated cardiomyopathy, ejection fraction 15% Hypertension Coronary artery disease Alcohol abuse Complete left bundle branch block I have been assigned to dictate discharge summary for this account. I was not involved in the patient's management. Emiliana Toribio NP Apr 10, 2020 13:24
== END 2020-04-08 14:00 | disposition left against medical advice (07) | DRG 205 ==
LOC: EDBD 12:44 → EMR 13:29 → 2E 14:50 → EDBEDREQ 15:56
DX: I42.0 Dilated cardiomyopathy (principal); I24.9 Acute ischemic heart disease, unspecified; I11.0 Hypertensive heart disease with heart failure; F10.129 Alcohol abuse with intoxication, unspecified; I44.7 Left bundle-branch block, unspecified; Z59.0 Homelessness; I42.6 Alcoholic cardiomyopathy; F10.10 Alcohol abuse, uncomplicated; I50.42 Chronic combined systolic (congestive) and diastolic (congestive) heart failure; I25.10 Atherosclerotic heart disease of native coronary artery without angina pectoris; I34.0 Nonrheumatic mitral (valve) insufficiency; I27.20 Pulmonary hypertension, unspecified; I36.1 Nonrheumatic tricuspid (valve) insufficiency
CPT/HCPCS: 36415; 71045; 80048; 80053; 80162; 80307; 81003; 83690; 83880; 84484; 85025; 85610; 85730; 93005; 93306; 96361; 96374; 99285; G0480; J2405; J7030; U0002